=== PATIENT | male | born 1935 | race Hispanic/Latino ===

== ENCOUNTER 2020-03-01 15:45 | Inpatient (IN) | payer SELFPAY ==
[2020-03-01] MEDS ORDERED: ALBUTEROL 2.5 MG/3 ML NEB SOL ONE (17:38)
[2020-03-01] MEDS ORDERED: IPRATROPIUM BROM 0.5MG/2.5ML ONE (17:38)
[2020-03-01] MEDS ORDERED: METHYLPREDNISOLONE 125 MG INJ ONE (17:38)
[2020-03-01] MEDS ORDERED: Magnesium Sulfate 2gm IVPB 2 G/50 ML BAG IV ONE (17:43)
[2020-03-01 17:58] LABS: Absolute Lymphocytes (CBC) 2.5 K/uL (0.7-4.9); Basophils % 0.3 % (0-1.3); Hematocrit 45.6 % (39.6-49.0); Lymphocytes % 15.5 % (15.3-44.8); MPV 8.4 fL (7.6-11.3); RBC Red Blood Cell Count 5.29 M/uL (4.33-5.43)
--- NOTE | 2020-03-01 18:10 | RAD REPORT ---
EXAM DESCRIPTION: RAD - Chest Single View - 03/01/2020 6:01 pm CLINICAL HISTORY: DYSPNEA COMPARISON: None TECHNIQUE: AP portable chest image was obtained 03/01/2020 6:01 pm . FINDINGS: No focal mass or consolidation. No failure or volume overload. Interstitial markings are p rominent with baseline unknown. This is probably chronic fibrosis. A superimposed interstitial infilt rate on fibrosis is possible. Heart and vasculature are normal. No measurable pleural effusion and no pneumothorax. No acute bony abnormality seen. No acute aortic findings suspected. IMPRESSION: No consolidation, focal mass or failure findings. Prominent interstitial pattern that could be chronic interstitial lung disease, interstitial pneumoni a or a combination.
[2020-03-01 18:14] LABS: Protime INR 1.14
[2020-03-01 18:17] LABS: ALT/SGPT 17 U/L (12-78); AST/SGOT 19 U/L (15-37); Albumin 3.6 g/dL (3.4-5.0); Alkaline Phosphatase 115 U/L (45-117); BUN Blood Urea Nitrogen 16 mg/dL (7-18); Bicarbonate 23 mmol/L (21-32); Bilirubin Direct 0.2 mg/dL (0-0.2); Bilirubin Total 1.1 mg/dL (0.2-1.0); Glucose Level 125 mg/dL (74-106); Lipase 75 U/L (73-393); NT PRO-BNP 87 pg/mL (<450); Potassium 4.2 mmol/L (3.5-5.1); Protein, Total 9.3 g/dL (6.4-8.2); Sodium Level 135 mmol/L (136-145); Troponin (Emerg Dept Use Only) < 0.02 ng/mL (0.0-0.045)
[2020-03-01] MEDS ORDERED: CEFTRIAXONE/SWI 1gm 1 GM/10 ML SYR ONE (18:53)
[2020-03-01] MEDS ORDERED: NA CHLORIDE 0.9% 1,000 ML ONE (18:53)
[2020-03-01] MEDS ORDERED: AZITHROMYCIN IV 500 MG in NA CHLORIDE 0.9% 250 ML IVPB ONE (19:00)
--- NOTE | 2020-03-01 20:14 | EDPHYS ---
Physician Documentation [facility] Name: Rich Barraza Age: 84 yrs Sex: Male : 1935 Arrival Date: 03/01/2020 Time: 15:54 Bed 6 Private MD: ED Physician Elías Mason HPI: 03/01 19:17 This 84 yrs old Male presents to ER via Ambulatory with complaints of jr8 Shortness of breath. 20:10 The patient has shortness of breath at rest. Onset: The symptoms/episode began/occurred jr8 acutely, today. Duration: The symptoms are continuous. The patient's shortness of breath is aggravated by light activity, talking, walking. Associated signs and symptoms: Pertinent positives: abdominal pain. Severity of symptoms: At their worst the symptoms were moderate in the emergency department the symptoms are unchanged. The patient has not experienced similar symptoms in the past. The patient has not recently seen a physician. Historical: - Allergies: 15:58 No Known Allergies; sv - PMHx: 15:58 None; sv - PSHx: 15:58 None; sv - Immunization history:: Adult Immunizations. - Social history:: Smoking status: Patient denies any tobacco usage or history of. ROS: 20:10 Eyes: Negative for injury, pain, redness, and discharge, ENT: Negative for injury, jr8 pain, and discharge, Neck: Negative for injury, pain, and swelling, Cardiovascular: Negative for chest pain, palpitations, and edema, Back: Negative for injury and pain, MS/Extremity: Negative for injury and deformity, Skin: Negative for injury, rash, and discoloration, Neuro: Negative for headache, weakness, numbness, tingling, and seizure. 20:10 Respiratory: Positive for dyspnea on exertion, shortness of breath, wheezing. 20:10 Abdomen/GI: Positive for abdominal pain, Negative for nausea, vomiting, and diarrhea, constipation, abdominal cramps, abdominal distension. Exam: 20:10 Eyes: Pupils equal round and reactive to light, extra-ocular motions intact. Lids and jr8 lashes normal. Conjunctiva and sclera are non-icteric and not injected. Cornea within normal limits. Periorbital areas with no swelling, redness, or edema. ENT: Nares patent. No nasal discharge, no septal abnormalities noted. Tympanic membranes are normal and external auditory canals are clear. Oropharynx with no redness, swelling, or masses, exudates, or evidence of obstruction, uvula midline. Mucous membranes moist. Neck: Trachea midline, no thyromegaly or masses palpated, and no cervical lymphadenopathy. Supple, full range of motion without nuchal rigidity, or vertebral point tenderness. No Meningismus. Cardiovascular: Regular rate and rhythm with a normal S1 and S2. No gallops, murmurs, or rubs. Normal PMI, no JVD. No pulse deficits. Back: No spinal tenderness. No costovertebral tenderness. Full range of motion. Skin: Warm, dry with normal turgor. Normal color with no rashes, no lesions, and no evidence of cellulitis. MS/ Extremity: Pulses equal, no cyanosis. Neurovascular intact. Full, normal range of motion. Neuro: Awake and alert, GCS 15, oriented to person, place, time, and situation. Cranial nerves II-XII grossly intact. Motor strength 5/5 in all extremities. Sensory grossly intact. Cerebellar exam normal. Normal gait. 20:10 Respiratory: moderate respiratory distress is noted, Respirations: labored breathing, tachypnea, Breath sounds: wheezing: expiratory that is moderate, is heard diffusely. 20:10 Abdomen/GI: Inspection: abdomen appears normal, Bowel sounds: active, all quadrants, Palpation: soft, in all quadrants, mild abdominal tenderness, in the right upper quadrant and right lower quadrant, mass, is not appreciated, rebound tenderness, is not appreciated, voluntary guarding, is not appreciated, involuntary guarding, is not appreciated, no appreciated organomegaly, Indicators: McBurney's point is not tender, Saleh's sign is negative, Rovsing's sign is negative, Liver: tenderness, is not appreciated. Vital Signs: 15:58 BP 129 / 68; Pulse 94; Resp 16; Temp 98.4(O); Pulse Ox 97% ; Weight 63.5 kg; sv 18:00 BP 102 / 69; Pulse 126; Resp 28; Pulse Ox 97% on R/A; em 19:00 BP 110 / 75; Pulse 105; Resp 24; Temp 98.4; Pulse Ox 99% on R/A; rr5 20:00 BP 115 / 86; Pulse 99; Resp 27; Pulse Ox 98% on R/A; rr5 21:00 BP 124 / 94; Pulse 95; Resp 25; Temp 98.5; Pulse Ox 99% on R/A; rr5 22:00 BP 120 / 48; Pulse 86; Resp 24; Temp 98.8; Pulse Ox 97% on R/A; rr5 22:59 BP 137 / 71; Pulse 90; Resp 26; Pulse Ox 97% on R/A; rr5 23:30 BP 131 / 70; Pulse 85; Resp 23; Temp 97; Pulse Ox 99% on R/A; rr5 MDM: 17:34 Patient medically screened. jr8 20:10 Data reviewed: vital signs, nurses notes, lab test result(s), EKG, radiologic studies, jr8 CT scan, plain films. Data interpreted: Pulse oximetry: on room air is 97 %. Interpretation: normal. Counseling: I had a detailed discussion with the patient and/or guardian regarding: the historical points, exam findings, and any diagnostic results supporting the discharge/admit diagnosis, lab results, radiology results, the need for further work-up and treatment in the hospital. Physician consultation: Saman Rod MD was called at 20:12, regarding admission, to the telemetry unit. and will see patient. 21:22 ED course: Dr. Dee notified of acute appendicitis and will see patient . 03/01 17:35 Order name: Basic Metabolic Panel; Complete Time: 18:40 03/01 17:35 Order name: CBC with Diff; Complete Time: 18:40 03/01 17:35 Order name: LFT's; Complete Time: 18:40 03/01 17:35 Order name: Magnesium; Complete Time: 18:40 03/01 17:35 Order name: NT PRO-BNP; Complete Time: 18:40 03/01 17:35 Order name: PT-INR; Complete Time: 18:40 03/01 17:35 Order name: Troponin (emerg Dept Use Only); Complete Time: 18:40 03/01 17:35 Order name: Lipase; Complete Time: 18:40 03/01 17:35 Order name: Blood Culture Adult (2) 03/01 17:35 Order name: Procalcitonin; Complete Time: 18:40 03/01 17:35 Order name: Lactate; Complete Time: 18:40 8 03/01 19:39 Order name: Flu rr5 03/01 19:39 Order name: Influenza Screen (A ; Complete Time: 20:26 EDMS 03/01 21:32 Order name: Lactate Sepsis 2 HR Follow-up; Complete Time: 21:34 EDMS 03/01 21:56 Order name: CBC with Automated Diff EDMS 03/01 21:56 Order name: CBC with Automated Diff EDMS 03/01 21:56 Order name: Comprehensive Metabolic Panel EDMS 03/01 21:56 Order name: Comprehensive Metabolic Panel EDMS 03/01 21:56 Order name: Lipase EDMS 03/01 21:56 Order name: Lipase EDMS 03/01 21:56 Order name: Magnesium EDMS 03/01 21:56 Order name: Magnesium EDMS 03/01 21:56 Order name: Phosphorus EDMS 03/01 21:56 Order name: Phosphorus EDMS 03/01 21:56 Order name: Protime (+INR) EDMS 03/01 21:56 Order name: Protime (+INR) EDMS 03/01 21:56 Order name: PTT, Activated Partial Thromb EDMS 03/01 21:56 Order name: PTT, Activated Partial Thromb EDMS 03/01 17:35 Order name: XRAY Chest (1 view); Complete Time: 18:40 [facility] 03/01 17:35 Order name: EKG; Complete Time: 17:36 8 03/01 17:35 Order name: Cardiac monitoring; Complete Time: 17:38 [facility] 03/01 17:35 Order name: EKG - Nurse/Tech; Complete Time: 17:38 8 03/01 17:35 Order name: IV Saline Lock; Complete Time: 17:38 8 03/01 17:35 Order name: Labs collected and sent; Complete Time: 17:38 8 03/01 17:35 Order name: O2 Per Protocol; Complete Time: 17:38 [facility] 03/01 17:35 Order name: O2 Sat Monitoring; Complete Time: 17:38 [facility] 03/01 20:09 Order name: CT Abd/Pelvis - IV Contrast Only; Complete Time: 21:34 [facility] 03/01 21:55 Order name: NPO EDMS 03/01 21:56 Order name: CONS Physician Consult EDMS 03/01 21:56 Order name: NPO [facility] Administered Medications: 17:34 Drug: Albuterol - atroVENT (3:1) (2.5 mg - 0.5 mg) 3 ml Route: Nebulizer; em 18:00 Follow up: Response: No adverse reaction; Marked relief of symptoms; Wheezing diminishedem 17:34 Drug: SOLU-Medrol 125 mg Route: IVP; Site: left antecubital; em 18:00 Follow up: Response: No adverse reaction; Marked relief of symptoms; Wheezing diminishedem 17:38 Drug: Magnesium Sulfate 2 grams Route: IVPB; Infused Over: 2 hrs; Site: left em antecubital; 19:06 Follow up: Response: No adverse reaction; Marked relief of symptoms; IV Status: em Completed infusion; IV Intake: 100ml 18:51 Drug: NS 0.9% 1000 ml Route: IV; Rate: 1000 ml; Site: left antecubital; em 20:45 Follow up: Response: No adverse reaction; IV Status: Completed infusion; IV Intake: rr5 1000ml 18:51 Drug: Rocephin 1 grams Route: IV; Rate: calculated rate; Site: left antecubital; em 19:30 Follow up: Response: No adverse reaction; IV Status: Completed infusion; IV Intake: [id number] 19:05 Drug: Zithromax 500 mg Route: IVPB; Infused Over: 1 hrs; Site: left antecubital; em 20:20 Follow up: Response: No adverse reaction; IV Status: Completed infusion; IV Intake: rr5 250ml 21:40 Dru.375 grams of (Zosyn 3.375 grams, NS 0.9% 100 ml) Route: IVPB; Infused Over: 60 rr5 mins; Site: left antecubital; 22:16 Follow up: Response: No adverse reaction; IV Status: Completed infusion; IV Intake: rr5 100ml 21:40 Drug: NS 0.9% 1000 ml Route: IV; Rate: 1000 ml; Site: left antecubital; rr5 22:22 Follow up: Response: No adverse reaction; IV Status: Infusion continued upon admission; rr5 IV Intake: 600ml 22:10 Drug: NS 0.9% 1000 ml Route: IV; Rate: 100 ml/hr; Site: left antecubital; rr5 22:22 Follow up: Response: No adverse reaction; IV Status: Infusion continued upon admission rr5 Disposition: 03/02 19:42 Co-signature as Attending Physician, Elías Mason MD. 7 Disposition: 03/01/20 20:13 Hospitalization ordered by Saman Rod for Inpatient Admission. Preliminary diagnosis are Chronic obstructive pulmonary disease with (acute) exacerbation, Acute appendicitis. - Bed requested for Telemetry/MedSurg (Inpatient). - Status is Inpatient Admission. rr5 - Condition is Fair. - Problem is new. - Symptoms have improved. Signatures: Dispatcher [employer] EDFaith Love RN La Nena Broussard RN TYRA Roger Richardson RN Carlos Marquez PA PA jr8 Patrick Salazar RN RN rr5 Elías Mason MD MD 7 Corrections: (The following items were deleted from the chart) 03/01 21:09 20:13 Hospitalization Ordered by Saman Rod MD for Inpatient Admission. Preliminary jr8 diagnosis is Pneumonia due to other specified bacteria; Chronic obstructive pulmonary disease with (acute) exacerbation. Bed requested for Telemetry/MedSurg (Inpatient). Status is Inpatient Admission. Condition is Fair. Problem is new. Symptoms have improved. jr8 21:57 21:09 03/01/2020 20:13 Hospitalization Ordered by Saman Rod MD for Inpatient mw Admission. Preliminary diagnosis is Chronic obstructive pulmonary disease with (acute) exacerbation; Acute appendicitis. Bed requested for Telemetry/MedSurg (Inpatient). Status is Inpatient Admission. Condition is Fair. Problem is new. Symptoms have improved. jr8 23:47 21:57 03/01/2020 20:13 Hospitalization Ordered by Saman Rod MD for Inpatient rr5 Admission. Preliminary diagnosis is Chronic obstructive pulmonary disease with (acute) exacerbation; Acute appendicitis. Bed requested for Telemetry/MedSurg (Inpatient). Status is Inpatient Admission. Condition is Fair. Problem is new. Symptoms have improved. mw
--- NOTE | 2020-03-01 20:14 | ER ---
Nurse's Notes [facility] Name: Rich Barraza Age: 84 yrs Sex: Male : 1935 Arrival Date: 03/01/2020 Time: 15:54 Bed 6 Private MD: Diagnosis: Chronic obstructive pulmonary disease with (acute) exacerbation;Acute appendicitis Presentation: 03/01 15:55 Chief complaint: Patient states: sent by health clinic for epigastric pain started sv yesterday. Denies n/v. Stated URI and abnormal EKG. Risk Assessment: Do you want to hurt yourself or someone else? Patient reports no desire to harm self or others. 15:55 Method Of Arrival: Ambulatory sv 15:58 Coronavirus screen: Surgical mask placed on patient. Patient moved to private room, sv placed in contact and droplet isolation with eye protection until further assessment. Patient reports a cough. Patient denies shortness of breath or difficulty breathing. Patient reports a measured and/or subjective temperature greater than 100.4F. Patient denies travel on a cruise ship or to a country the [facility] [place]NOTE 2[place] currently lists as an affected area. Patient denies contact with known and/or suspected case of COVID-19. Ebola Screen: No symptoms or risks identified at this time. Onset of symptoms was February 29, 2020. 15:58 Acuity: KOFI 3 sv 17:29 Acuity: KOFI 2 aa5 17:29 Note Pt's son reported SOB, respiratory distress noted, pt taken to room ER6. aa5 17:30 Initial Sepsis Screen: Does the patient meet any 2 criteria? RR > 20 per min. HR > 90 em bpm. Yes Does the patient have a suspected source of infection? No. Patient's initial sepsis screen is negative. If YES to both, name of provider notified: Carlos MENDENHALL. Historical: - Allergies: 15:58 No Known Allergies; sv - PMHx: 15:58 None; sv - PSHx: 15:58 None; sv - Immunization history:: Adult Immunizations. - Social history:: Smoking status: Patient denies any tobacco usage or history of. Screenin:30 Abuse screen: Denies threats or abuse. Nutritional screening: No deficits noted. em Tuberculosis screening: No symptoms or risk factors identified. Fall Risk None identified. Assessment: 17:30 General: Appears ill, Behavior is restless, Denies fever. Pain: Complains of pain in em abdomen. Neuro: Level of Consciousness is awake, alert, obeys commands, Oriented to person, place, time, situation, Appropriate for age. Cardiovascular: Denies chest pain, Capillary refill < 3 seconds Patient's skin is warm and dry. Rhythm is sinus tachycardia. Respiratory: Reports shortness of breath Airway is patent Respiratory effort is labored, Respiratory pattern is regular, tachypnea Breath sounds with wheezes bilaterally. the patient has severe shortness of breath. GI: Abdomen is round non-distended, Bowel sounds present X 4 quads. Reports upper abdominal pain. Derm: Skin is intact, is thin, Skin is clammy, Skin is pale, Skin temperature is cool. Musculoskeletal: Capillary refill < 3 seconds, Range of motion: intact in all extremities. 18:00 Reassessment: Patient appears in no apparent distress at this time. Patient states em feeling better. Patient states symptoms have improved. 18:35 Reassessment: Patient appears in no apparent distress at this time. Patient and/or em family updated on plan of care and expected duration. Pain level reassessed. Patient is alert, oriented x 3, equal unlabored respirations, skin warm/dry/pink. Patient states feeling better. 19:10 General: Appears in no apparent distress. comfortable, Behavior is calm, cooperative, rr5 appropriate for age. 19:10 Pain: Denies pain. Neuro: Level of Consciousness is awake, alert, obeys commands, rr5 Oriented to person, place, time, situation. Cardiovascular: Capillary refill < 3 seconds Patient's skin is warm and dry. Respiratory: Airway is patent Respiratory effort is even, unlabored, Respiratory pattern is regular, tachypnea Breath sounds with wheezes bilaterally. GI: No signs and/or symptoms were reported involving the gastrointestinal system. : No signs and/or symptoms were reported regarding the genitourinary system. EENT: No signs and/or symptoms were reported regarding the EENT system. Derm: Skin is intact, is healthy with good turgor, Skin is pink, warm \T\ dry. Musculoskeletal: Circulation, motion, and sensation intact. Capillary refill < 3 seconds. 20:30 Reassessment: Patient appears in no apparent distress at this time. No changes from rr5 previously documented assessment. Patient is alert, oriented x 3, equal unlabored respirations, skin warm/dry/pink. for admission awaiting for orders and room number. 21:30 Reassessment: lactate 5.8 [facility] laboratory staff called, ED provider aware. rr5 21:30 Reassessment: Patient appears in no apparent distress at this time. Patient is alert, rr5 oriented x 3, equal unlabored respirations, skin warm/dry/pink. family updated for the plan of care. 22:30 Reassessment: Patient appears in no apparent distress at this time. Patient is alert, rr5 oriented x 3, equal unlabored respirations, skin warm/dry/pink. for transfer to floor at 2330H. Vital Signs: 15:58 BP 129 / 68; Pulse 94; Resp 16; Temp 98.4(O); Pulse Ox 97% ; Weight 63.5 kg; sv 18:00 BP 102 / 69; Pulse 126; Resp 28; Pulse Ox 97% on R/A; em 19:00 BP 110 / 75; Pulse 105; Resp 24; Temp 98.4; Pulse Ox 99% on R/A; rr5 20:00 BP 115 / 86; Pulse 99; Resp 27; Pulse Ox 98% on R/A; rr5 21:00 BP 124 / 94; Pulse 95; Resp 25; Temp 98.5; Pulse Ox 99% on R/A; rr5 22:00 BP 120 / 48; Pulse 86; Resp 24; Temp 98.8; Pulse Ox 97% on R/A; rr5 22:59 BP 137 / 71; Pulse 90; Resp 26; Pulse Ox 97% on R/A; rr5 23:30 BP 131 / 70; Pulse 85; Resp 23; Temp 97; Pulse Ox 99% on R/A; rr5 ED Course: 15:54 Patient arrived in ED. mr 16:00 Triage completed. sv 16:00 Arm band placed on. sv 17:30 Patient has correct armband on for positive identification. Placed in gown. Bed in low em position. Call light in reach. Side rails up X2. Adult w/ patient. laboratory monitor on. Pulse ox on. NIBP on. 17:34 [facility] jr8 17:34 Elías Mason MD is Attending Physician. jr8 17:37 Roger Richardson, RN is Primary Nurse. em 17:40 Inserted saline lock: 20 gauge in left antecubital area, using aseptic technique. Blood em collected. 17:40 Initial lab(s) drawn, by ED staff, sent to lab. First set of blood cultures drawn by me.em 18:02 XRAY Chest (1 view) In Process Unspecified. EDMS 20:13 Saman Rod MD is Hospitalizing Provider. jr8 20:40 Repeat lab(s) drawn. by me, sent to lab. rr5 20:54 CT Abd/Pelvis - IV Contrast Only In Process Unspecified. EDMS 22:59 No provider procedures requiring assistance completed. Patient admitted, IV remains in rr5 place. intact, No redness/swelling at site. Administered Medications: 17:34 Drug: Albuterol - atroVENT (3:1) (2.5 mg - 0.5 mg) 3 ml Route: Nebulizer; em 18:00 Follow up: Response: No adverse reaction; Marked relief of symptoms; Wheezing diminishedem 17:34 Drug: SOLU-Medrol 125 mg Route: IVP; Site: left antecubital; em 18:00 Follow up: Response: No adverse reaction; Marked relief of symptoms; Wheezing diminishedem 17:38 Drug: Magnesium Sulfate 2 grams Route: IVPB; Infused Over: 2 hrs; Site: left em antecubital; 19:06 Follow up: Response: No adverse reaction; Marked relief of symptoms; IV Status: em Completed infusion; IV Intake: 100ml 18:51 Drug: NS 0.9% 1000 ml Route: IV; Rate: 1000 ml; Site: left antecubital; em 20:45 Follow up: Response: No adverse reaction; IV Status: Completed infusion; IV Intake: rr5 1000ml 18:51 Drug: Rocephin 1 grams Route: IV; Rate: calculated rate; Site: left antecubital; em 19:30 Follow up: Response: No adverse reaction; IV Status: Completed infusion; IV Intake: [id number] 19:05 Drug: Zithromax 500 mg Route: IVPB; Infused Over: 1 hrs; Site: left antecubital; em 20:20 Follow up: Response: No adverse reaction; IV Status: Completed infusion; IV Intake: rr5 250ml 21:40 Dru.375 grams of (Zosyn 3.375 grams, NS 0.9% 100 ml) Route: IVPB; Infused Over: 60 rr5 mins; Site: left antecubital; 22:16 Follow up: Response: No adverse reaction; IV Status: Completed infusion; IV Intake: rr5 100ml 21:40 Drug: NS 0.9% 1000 ml Route: IV; Rate: 1000 ml; Site: left antecubital; rr5 22:22 Follow up: Response: No adverse reaction; IV Status: Infusion continued upon admission; rr5 IV Intake: 600ml 22:10 Drug: NS 0.9% 1000 ml Route: IV; Rate: 100 ml/hr; Site: left antecubital; rr5 22:22 Follow up: Response: No adverse reaction; IV Status: Infusion continued upon admission rr5 Intake: 19:06 IV: 100ml; Total: 100ml. em 19:30 IV: 10ml; Total: 110ml. rr5 20:20 IV: 250ml; Total: 360ml. rr5 20:45 IV: 1000ml; Total: 1360ml. rr5 22:16 IV: 100ml; Total: 1460ml. rr5 22:22 IV: 600ml; Total: 2060ml. rr5 Outcome: 20:13 Decision to Hospitalize by Provider. 8 22:20 Admitted to Tele accompanied by tech, via stretcher, room 415, with chart, Report rr5 called to angelique 22:20 Condition: stable rr5 22:20 Instructed on the need for admit. 23:47 Patient left the ED. rr5 Signatures: Dispatcher [employer] Faith Vazquez, RN TYRA Tracy Noyola Edgar RN Yue Howard RN RN aa5 Carlos Graf PA PA jr8 Patrick Salazar RN RN rr5 Corrections: (The following items were deleted from the chart) 16:02 15:58 63.5 kg; sv sv 16:02 15:58 Resp 16bpm; Pulse Ox 100%; Temp 98.4F Oral; 63.5 kg; sv sv
--- NOTE | 2020-03-01 21:10 | RAD REPORT ---
EXAM DESCRIPTION: CT - Abdomen Pelvis W Contrast - 03/01/2020 8:54 pm CLINICAL HISTORY: ABD PAIN COMPARISON: No comparisons TECHNIQUE: Biphasic, helical CT imaging of the abdomen and pelvis was performed following 100 ml non -ionic IV contrast. No oral contrast administered. All CT scans are performed using dose optimization technique as appropriate and may include automated exposure control or mA/KV adjustment according to patient size. FINDINGS: No suspicious findings in the lung bases. The liver, spleen, and pancreas show no suspicious findings. Several small gallstones are present. No active gallbladder process seen. No biliary tree dilatation. Symmetric renal function is seen with no hydronephrosis or suspicious renal mass. No pyelonephritis o r acute parenchymal process. No bladder abnormalities. No adrenal abnormalities. No gastric dilatation or gastric wall thickening. No dilated small bowel. Terminal ileum is normal in appearance. The appendix is grossly abnormal. Appendix is dilated to 13 mm. A small appendicolith is present. There is stranding in the periappendiceal fat. Reactive lymph nodes are present in the bella cent fatty tissues. The appendix and cecum are positioned in the right mid abdomen with the appendix extending medially. There is stranding along the right pararenal fascia. There is a mild secondary in volvement of the third portion duodenum. No free air or pneumatosis. No abscess or extravasation of b owel content identifiable. No hernia, mass or bulky lymphadenopathy. Prominent lumbar spine disc and bone degenerative change present. No pathologic bone process. 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 Findings telephoned to the referring clinician 9:06 p.m. IMPRESSION: Acute appendicitis. No abscess, free air or other complicating factor. The appendix is positioned in the right mid abdomen along the right renal fascia. This is superior to the typical right lower quadrant position. Cholelithiasis without acute gallbladder finding.
[2020-03-01] MEDS ORDERED: PIPER/TAZO/NS 3.375gm 3.375 GM/100 ML BAG ONE (21:33)
[2020-03-01] MEDS ORDERED: NA CHLORIDE 0.9% 2,000 ML ONE (21:39)
[2020-03-01] MEDS ORDERED: ONDANSETRON 4 MG/2 ML VIAL IV PRN (21:49)
[2020-03-01] MEDS ORDERED: HYDROMORPHONE HCL 1 MG/ML INJ IV PRN (21:49)
[2020-03-01] MEDS ORDERED: ACETAMINOPHEN 650MG/RECT SUPP RECT PRN (21:49)
[2020-03-02 00:37] VITALS: BMI 25.0
[2020-03-02] MEDS: Ringers Lactate 1,000 ML IV SCH ×3 (01:18→17:03)
[2020-03-02] MEDS: Levofloxacin500mg IV 500 MG/100 ML BAG IV SCH ×2 (01:18→20:40)
[2020-03-02] MEDS: METRONIDAZOLE 500mg IVPB 500 MG/100 ML BAG IV SCH ×4 (01:18→17:39)
[2020-03-02 07:29] LABS: Absolute Lymphocytes (CBC) 0.7 K/uL (0.7-4.9); Basophils % 0.2 % (0-1.3); Hematocrit 35.6 % (39.6-49.0); Lymphocytes % 4.2 % (15.3-44.8); MPV 8.3 fL (7.6-11.3)
[2020-03-02 07:43] LABS: Albumin 2.7 g/dL (3.4-5.0); Bilirubin Total 0.5 mg/dL (0.2-1.0); Magnesium 2.3 mg/dL (1.8-2.4); Phosphorus 1.3 mg/dL (2.5-4.9); Potassium 4.3 mmol/L (3.5-5.1); Protein, Total 7.1 g/dL (6.4-8.2)
--- NOTE | 2020-03-02 08:02 | P.HP ---
Certification for Inpatient Patient admitted to: Inpatient With expected LOS: >2 Midnights Patient will require the following post-hospital care: None Practitioner: I am a practitioner with admitting privileges, knowledge of patient current condition, hospital course, and medical plan of care. Services: Services provided to patient in accordance with Admission requirements found in Title 42 Section 412.3 of the Code of Federal Regulations Patient History Date of Service: 03/01/20 Reason for admission: Abdominal pain/acute appendicitis History of Present Illness: Patient is an 84-year-old gentleman who came to the hospital with fever and abdominal discomfort. Pain was in the lower abdominal quadrants. Patient has some rebound and guarding as well. Patient did have a leukocytosis and his lactic acid and procalcitonin were elevated. If workup in the emergency room revealed an acute appendicitis. Patient also has history of COPD. Otherwise, patient has been doing well with no new complaints. 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 Allergies No Known Allergies Allergy (Verified 03/01/20 23:59) Home Medications: NK [No Home Meds] 03/02/20 - Past Medical/Surgical History Has patient received pneumonia vaccine in the past: No Diabetic: No -: COPD? -: asthma -: urinary related surgery - Family History Brother Medical History: Heart disease, Hypertension, Diabetes - Social History Smoking Status: Former smoker Alcohol use: Yes CD- Drugs: No Caffeine use: Yes Place of Residence: Home Review of Systems 10-point ROS is otherwise unremarkable Physical Examination - Vital Signs Temperature: 97.3 F Blood Pressure: 121/55 Pulse: 75 Respirations: 18 Pulse Ox (%): 93 - Physical Exam General: Alert, In no apparent distress, Oriented x3 HEENT: Atraumatic, PERRLA, Mucous membr. moist/pink, EOMI, Sclerae nonicteric Neck: Supple, 2+ carotid pulse no bruit, No LAD, Without JVD or thyroid abnormality Respiratory: Clear to auscultation bilaterally, Normal air movement Cardiovascular: Regular rate/rhythm, Normal S1 S2, No murmurs Gastrointestinal: Normal bowel sounds, Soft and benign, Non-distended, No guarding, Tenderness, Rebound Musculoskeletal: No clubbing, No swelling, No tenderness Integumentary: No rashes Neurological: Normal gait, Normal speech, Normal strength at 5/5 x4 extr, Normal tone, Sensation intact, Cranial nerves 3-12 intact, Normal affect Lymphatics: No axilla or inguinal lymphadenopathy - Studies Laboratory Data (last 24 hrs) 03/01/20 17:40: PT 13.4 H, INR 1.14 03/01/20 17:40: WBC 16.0 H, Hgb 14.6, Hct 45.6, Plt Count 219 03/01/20 17:40: Sodium 135 L, Potassium 4.2, BUN 16, Creatinine 1.22, Glucose 125 H, Magnesium 2.0, Total Bilirubin 1.1 H, AST 19, ALT 17, Alkaline Phosphatase 115, Lipase 75 Microbiology Data (last 24 hrs): 03/01/20 19:40 Nasopharnyx Influenza Type A Antigen Screen - Final 03/01/20 19:40 Nasopharnyx Influenza Type B Antigen Screen - Final Assessment & Plan - Problems (Diagnosis) (1) Acute appendicitis Current Visit: Yes Status: Acute (2) History of COPD Current Visit: Yes Status: Acute - Plan 1. Continue with IV hydration 2. Continue with IV antibiotics 3. Continue with pain control 4. NPO 5. General surgery consultation; 6. Serial H&H, and we will monitor CBC, LFTs, lactic acid, and procalcitonin along with electrolytes. 7. Monitor respiratory status closely 8. Patient on low to moderate risk for having perioperative cardiopulmonary complications. However, benefits of surgery outweigh the risk and would proceed with surgery as an emergent surgical intervention 9. GI and DVT prophylaxis Discharge Plan: Home Plan to discharge in: Greater than 2 days - Advance Directives Does patient have a Living Will: No Does patient have a Durable POA for Healthcare: No - Code Status/Comfort Care Code Status Assessed: Yes Code Status: Full Code Critical Care: No Time Spent Managing PTS Care (In Minutes): 45
--- NOTE | 2020-03-02 08:05 | EKG ---
Test Date: 2020-03-01 Test Time: 19:50:58 Hazardous Substances Scientist: RR MEASUREMENT RESULTS: Intervals: Rate: 107 SD: 168 QRSD: 90 QT: 350 QTc: 467 [place]: P: 80 SD: 168 QRS: 96 T: 75 INTERPRETIVE STATEMENTS: Sinus tachycardia with frequent and consecutive premature ventricular complexes and fusion complexes Rightward axis Abnormal ECG No previous ECG available for comparison Electronically Signed On 03-02-20 08:04:01 CDT by Joe Gallagher
--- NOTE | 2020-03-02 08:05 | P.PN ---
Subjective Date of Service: 03/02/20 Still with pain. Scheduled to see General surgery this morning & go to the OR. Review of Systems 10-point ROS is otherwise unremarkable Physical Examination - Vital Signs Temperature: 97.3 F Blood Pressure: 121/55 Pulse: 75 Respirations: 18 Pulse Ox (%): 93 - Physical Exam General: Alert, In no apparent distress, Oriented x3 Respiratory: Clear to auscultation bilaterally, Normal air movement Cardiovascular: Regular rate/rhythm, Normal S1 S2, No murmurs Gastrointestinal: Normal bowel sounds, Soft and benign, Non-distended, No guarding, Tenderness, Rebound Musculoskeletal: No clubbing, No swelling, No tenderness Integumentary: No rashes Neurological: Normal speech, Normal tone, Sensation intact, Cranial nerves 3-12 intact - Studies Laboratory Data (last 24 hrs) 03/01/20 17:40: PT 13.4 H, INR 1.14 03/01/20 17:40: WBC 16.0 H, Hgb 14.6, Hct 45.6, Plt Count 219 03/01/20 17:40: Sodium 135 L, Potassium 4.2, BUN 16, Creatinine 1.22, Glucose 125 H, Magnesium 2.0, Total Bilirubin 1.1 H, AST 19, ALT 17, Alkaline Phosphatase 115, Lipase 75 Microbiology Data (last 24 hrs): 03/01/20 19:40 Nasopharnyx Influenza Type A Antigen Screen - Final 03/01/20 19:40 Nasopharnyx Influenza Type B Antigen Screen - Final Medications List Reviewed: Yes Assessment & Plan - Problems (Diagnosis) (1) Acute appendicitis Current Visit: Yes Status: Acute (2) History of COPD Current Visit: Yes Status: Acute - Plan Continue with current plan of care as mentioned below 1. Continue with IV hydration 2. Continue with IV antibiotics 3. Continue with pain control 4. NPO 5. General surgery consultation; 6. Serial H&H, and we will monitor CBC, LFTs, lactic acid, and procalcitonin along with electrolytes. 7. Monitor respiratory status closely 8. Patient on low to moderate risk for having perioperative cardiopulmonary complications. However, benefits of surgery outweigh the risk and would proceed with surgery as an emergent surgical intervention 9. GI and DVT prophylaxis Discharge Plan: Home Plan to discharge in: Greater than 2 days - Advance Directives Does patient have a Living Will: No Does patient have a Durable POA for Healthcare: No - Code Status/Comfort Care Code Status: Full Code Critical Care: No Time Spent Managing PTS Care (In Minutes): 30
[2020-03-02 08:10] LABS: Protime INR 1.2
[2020-03-02] MEDS ORDERED: BUPIVACA 0.25%/EPI 0.0005% MDV 50 ML VIAL ONE (08:27)
[2020-03-02] MEDS ORDERED: LIDOCAINE 2% MPF 5 ML VIAL ONE (08:43)
[2020-03-02] MEDS ORDERED: propofoL 200 MG/20 ML VIAL IV ONE (08:43)
[2020-03-02] MEDS ORDERED: ROCURONIUM 50 MG/5 ML VIAL IV ONE (08:46)
[2020-03-02] MEDS ORDERED: FENTANYL CITR 100 MCG/2 ML ONE (08:46)
[2020-03-02] MEDS ORDERED: ENOXAPARIN 30 MG/0.3 ML SQ SCH (09:00)
--- NOTE | 2020-03-02 09:04 | CON ---
Date of Consultation: 03/02/2020 Brief History Of Present Illness: Patient is an 84-year-old gentleman who came to the [facility] with fever, abdominal pain beginning yesterday. He states that the pain got significantly worse and he had some nausea, no vomiting, significantly worse pain and he developed sweats at that point. He came to the emergency room with the above-stated complaint. He was worked up and found to have e vidence of appendicitis. Past Medical History: COPD, asthma. Past Surgical History: He has had a some urinary related surgery. He is a very poor historian and as such I am unable to get much information about his past medical hi story. Allergies: NO KNOWN DRUG ALLERGIES. Medications: None. Social History: He has a 50+ pack-year history of smoking. Drinks alcohol routinely. Denies recrea tional drug use. Review of Systems: Ten-point review of systems other than HPI, denies. Physical Examination: Vital signs: At time of my examination, his BMI was 25. His blood pressure 120/55, pulse of 75, res piratory rate 18, temperature 97.3. General: He is awake, alert, oriented. Psychiatric: He is conversive. HEENT: Normocephalic, sclerae anicteric. Mucous membranes are moist. Oropharynx clear. Neck: Supple. No JVD. Chest: Normal to expansion and excursion. Cardiovascular: Regular rate and rhythm. Pulmonary: Clear to auscultation bilaterally. Abdomen: Soft with positive McBurney's point tenderness. Positive voluntary guarding. Positive oziel ound. Focal peritonitis is most evident in the right lower quadrant and right mid upper quadrant. Extremities: No clubbing, cyanosis, edema. Skin: Warm and dry. Laboratory Data: Reveals a white blood count of 16.0, hemoglobin is 14.6, hematocrit of 45.6, platel et count is 219. His sodium is 135, potassium 4.2, chloride 101, carbon dioxide 23, BUN 16, creatini ne 1.2, glucose is 125. His total bilirubin 1.1, direct bilirubin 0.2, AST 19, ALT 17, alkaline phos phatase 117. Troponin less than 0.02. His lipase is 75. Procalcitonin 0.08. He had a CT scan of t he abdomen and pelvis officially read as acute appendicitis. No abscess, free air, or other complica ting factors. The appendix is positioned in the right mid abdomen along the right renal fascia. Thi s appeared to the typical right lower quadrant position. Cholelithiasis without acute gallbladder fi nding. He had a chest x-ray performed as well, officially read as no consolidation, focal mass or fa ilure. Findings prominent interstitial pattern could be chronic interstitial lung disease, interstit ial pneumonia or combination. Assessment/plan: 84-year-old male who comes in with signs and symptoms of acute nonperforated append icitis. 1.IV fluid hydration. 2.Antibiotic coverage. 3.I explained risks, benefits, and alternatives of laparoscopic, possible open appendectomy includin g but not limited to bleeding, infection, damage to surrounding tissue, need for further operative pr ocedures. The patient agrees to proceed as indicated. MADAN/JONATHAN Voice ID: [id number] Report ID: [id number]
[2020-03-02] MEDS ORDERED: KETOROLAC 30 MG/ML INJ ONE (09:27)
[2020-03-02] MEDS ORDERED: ONDANSETRON 4 MG/2 ML VIAL ONE (09:27)
[2020-03-02 09:36] LABS: Blood Morphology Comment NOT SEEN (NOT SEEN); Platelet Estimate ADEQ; Urine White Blood Cell Casts OK
[2020-03-02] MEDS ORDERED: dexAMETHasone 4 MG/ML VIAL ONE (09:37)
[2020-03-02] MEDS ORDERED: GLYCOPYRROLATE 0.2 MG/ML SYR ONE (09:38)
[2020-03-02] MEDS ORDERED: NEOSTIGMINE 1 MG/ML -5 ML ONE (09:38)
--- NOTE | 2020-03-02 09:48 | P.OP ---
Preoperative diagnosis: Acute Appendicitis Postoperative diagnosis: Acute Appendicitis Primary procedure: Laparoscopic Appendectomhy Anesthesia: GETA + Local Estimated blood loss: <10cc Specimen: Appendix Findings: Suppurative changes, no gross perforation or spillage Complications: None Drain(s): DENAE drain (round) Transferred to: Recovery Room Condition: Good
--- NOTE | 2020-03-02 10:43 | OP ---
Date of Procedure: 03/02/2020 Surgeon: Antwon Dee MD, Preoperative Diagnosis: Acute appendicitis. Postoperative Diagnosis: Acute appendicitis. Procedure Performed: Laparoscopic appendectomy. Anesthesia: General endotracheal plus local with local with 0.5% Marcaine with epinephrine. Estimated Blood Loss: Less than 10 mL. Specimen: Vermiform appendix. Findings: Suppurative changes, no gross perforation or spillage. Complications: None. Drains: 7-Malagasy round DENAE drain in the right hepatic fossa, transferred to recovery room in good con dition. Procedure In Detail: After informed was obtained, patient was brought to the operating room, prepped and draped in the usual sterile fashion. After adequate anesthesia was achieved, an infraumbilical area was anesthetized with 0.25% Marcaine, sharply incised and a 5 mm trocar was introduced in the ab domen without complication. Insufflation was obtained at 15 mmHg at this time. There was no injury to vital structures upon entry to the abdomen. Additional trocar chosen in the right lower quadrant. This was similarly anesthetized, sharply incised and a 5 mm trocar was introduced in the abdomen wi thout evidence of complication under direct visualization. Another trocar was then placed in the sup rapubic position. There was a 5 mm trocar, also placed under direct visualization without complicati on under direct visualization. The umbilical trocar was then up-sized to a 12 mm under direct visual ization without evidence of complication. The patient was positioned in the head down, right side up position and the ratcheted graspers used to smooth the small bowel out of the way. The appendix fou nd to be in the retrocecal position against the Gerota's fascia. It was dissected using blunt and Li gaSure dissection. The mesoappendix was taken down with the LigaSure device down to the confluence o f the cecum. There was some purulent changes, but no obvious gross spillage in the area, but the flu id was murky consistent with a developing abscess in the right lower quadrant. I then grasped and el evated the appendix and fired the Endo GERALD 35 blue load across the base of the appendix at the conflu ence of the cecum with good approximation of the tissues. The appendix was then placed in EndoCatch bag, removed the umbilical trocar and sent off for pathologic examination. The area was copiously ir rigated multiple times and completely clear and the pelvis was inspected and found to have some murky fluid as well, but no gross feculent peritonitis. The pelvis was completely irrigated and suctioned out until completely dry as was the right lower quadrant all the way up to the infrahepatic space. After this was completely irrigated and suctioned out completely dry, a 7-Malagasy round DENAE drain was b rought into the right lower quadrant trocar and positioned in the appropriate right colic gutter near the staple line and brought out and secured to the skin through the lateral trocar. At this point, the umbilical trocar was removed and the umbilical trocar site was closed using a Jaime-Mk sut ure passer with 0-Vicryl for fascia with good approximation tissues. The abdomen was completely desu fflated under direct visualization without evidence of complication. All skin incisions copiously ir rigated and closed with interrupted slade. A sterile dressing placed over top. The patient tolera antwon the procedure well without evidence of complication and transferred to PACU in good condition. A ll counts were correct at the end of case. MADAN/JONATHAN Voice ID: [id number] Report ID: [id number]
--- NOTE | 2020-03-02 11:55 | RAD REPORT ---
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 No focal infiltrate detected. N o subdiaphragmatic free air. No bowel obstruction is present. Moderate lumbar degenerative changes. Contrast is present in the uri nary bladder. IMPRESSION: No acute finding demonstrated
[2020-03-02] MEDS: POTASS/SODIUM PHOSPHATE 1 PKT POWD.PACK PO SCH ×3 (15:59→17:40)
[2020-03-02] MEDS ORDERED: VANCOMYCIN 1 GM in NA CHLORIDE 0.9% 250 ML IVPB ONE (23:33)
[2020-03-03] MEDS: METRONIDAZOLE 500mg IVPB 500 MG/100 ML BAG IV SCH ×2 (00:09→05:06)
[2020-03-03] MEDS ORDERED: NA CHLORIDE 0.9% 250 ML ONE (00:41)
[2020-03-03] MEDS ORDERED: VANCOMYCIN 1 GM/VIAL ONE (00:46)
[2020-03-03] MEDS: Ringers Lactate 1,000 ML IV SCH ×2 (05:13→17:41)
[2020-03-03 06:44] LABS: Absolute Lymphocytes (CBC) 1.4 K/uL (0.7-4.9); Hematocrit 35.9 % (39.6-49.0); Lymphocytes % 7.5 % (15.3-44.8); MPV 8.3 fL (7.6-11.3); RBC Red Blood Cell Count 4.22 M/uL (4.33-5.43)
[2020-03-03 07:11] LABS: Albumin 2.5 g/dL (3.4-5.0); Bilirubin Total 0.5 mg/dL (0.2-1.0); Magnesium 2.2 mg/dL (1.8-2.4); Phosphorus 2.3 mg/dL (2.5-4.9); Potassium 4.2 mmol/L (3.5-5.1)
[2020-03-03] MEDS: POTASS/SODIUM PHOSPHATE 1 PKT POWD.PACK PO SCH ×3 (08:41→11:35)
[2020-03-03] MEDS: ENOXAPARIN 40 MG/0.4 ML SQ SCH (08:41)
--- NOTE | 2020-03-03 11:09 | P.PN ---
Subjective Date of Service: 03/03/20 Chief Complaint: Abdominal pain/acute appendicitis Subjective: Improving (Patient feels well, no nausea, tolerating diet, less pain) Physical Examination - Vital Signs Temperature: 97.1 F Blood Pressure: 138/65 Pulse: 82 Respirations: 18 Pulse Ox (%): 93 - Physical Exam General: Alert, In no apparent distress, Cooperative Respiratory: Clear to auscultation bilaterally Gastrointestinal: Other (soft, mild appropriate TTP, ND, DENAE serous, incisions clean) - Studies Microbiology Data (last 24 hrs): 03/01/20 18:00 Blood - Blood Blood Culture Gram Stain - Final Medications List Reviewed: Yes Assessment And Plan - Current Problems (Diagnosis) (1) Acute appendicitis Current Visit: Yes Status: Acute Plan: - transition to PO pain meds - ambulate with assist - incentive spirometry - serial exams - DENAE drain teaching - daily dressing changes - advance diet - will kiki go home on PO antibiotics
[2020-03-03] MEDS ORDERED: HYDROCODONE/APAP 5/325 MG TAB PO PRN (11:10)
[2020-03-03] MEDS: PIPER/TAZO/NS 3.375gm 3.375 GM/100 ML BAG IVPB SCH ×2 (12:18→17:43)
--- NOTE | 2020-03-03 15:32 | P.PN ---
Subjective Date of Service: 03/03/20 Primary Care Provider: None Chief Complaint: Abdominal pain/acute appendicitis Subjective: Improving, Doing well Physical Examination - Vital Signs Temperature: 98.1 F Blood Pressure: 151/77 Pulse: 68 Respirations: 18 Pulse Ox (%): 96 - Physical Exam General: Alert, In no apparent distress, Cooperative HEENT: Atraumatic Neck: Supple Respiratory: Clear to auscultation bilaterally, Normal air movement Cardiovascular: Normal pulses, Regular rate/rhythm Gastrointestinal: Tenderness (Appropriate postop tenderness.) Neurological: Normal speech, Normal strength at 5/5 x4 extr, Normal tone, Normal affect - Studies Microbiology Data (last 24 hrs): 03/01/20 18:00 Blood - Blood Blood Culture Gram Stain - Final Medications List Reviewed: Yes Assessment & Plan Discharge Plan: Home Plan to discharge in: 24 Hours Physician Review Additional Text: Impression: Abdominal pain secondary to acute appendicitis status post laparoscopic appendectomy Plan: Patient has done well post operatively. Case discussed with surgery. Continued to advance diet. Encourage ambulation. Will provide DVT prophylaxis. Encourage incentive spirometer. Continue IV antibiotic therapy at this time. Will monitor closely. Anticipate discharge as early as tomorrow. Time Spent Managing Pts Care (In Minutes): 55
[2020-03-03 17:02] VITALS: O2SAT 95
[2020-03-04] MEDS: PIPER/TAZO/NS 3.375gm 3.375 GM/100 ML BAG IVPB SCH ×2 (05:40)
[2020-03-04] MEDS: Ringers Lactate 1,000 ML IV SCH ×2 (05:40)
[2020-03-04 06:28] LABS: BUN Blood Urea Nitrogen 9 mg/dL (7-18); Bicarbonate 26 mmol/L (21-32); Glucose Level 98 mg/dL (74-106); Magnesium 2.1 mg/dL (1.8-2.4); Phosphorus 1.7 mg/dL (2.5-4.9); Potassium 3.8 mmol/L (3.5-5.1); Sodium Level 142 mmol/L (136-145)
[2020-03-04 06:44] LABS: Absolute Lymphocytes (CBC) 2.5 K/uL (0.7-4.9); Basophils % 0.1 % (0-1.3); Hematocrit 35.5 % (39.6-49.0); Lymphocytes % 19.2 % (15.3-44.8); MPV 8.5 fL (7.6-11.3); RBC Red Blood Cell Count 4.11 M/uL (4.33-5.43)
[2020-03-04] MEDS: POTASS/SODIUM PHOSPHATE 1 PKT POWD.PACK PO SCH ×3 (07:00→08:40)
[2020-03-04] MEDS: ENOXAPARIN 40 MG/0.4 ML SQ SCH (07:17)
--- NOTE | 2020-03-04 10:51 | P.DS ---
Admission Date: 03/01/20 Discharge Date: 03/04/20 Primary Care Provider: None Disposition: ROUTINE DISCHARGE Discharge Condition: GOOD Reason for Admission: Abdominal pain/acute appendicitis Consultations: Surgery-Dr. Dee Procedures: Ct Scan: FINDINGS: No suspicious findings in the lung bases. The liver, spleen, and pancreas show no suspicious findings. Several small gallstones are present. No active gallbladder process seen. No biliary tree dilatation. Symmetric renal function is seen with no hydronephrosis or suspicious renal mass. No pyelonephritis or acute parenchymal process. No bladder abnormalities. No adrenal abnormalities. No gastric dilatation or gastric wall thickening. No dilated small bowel. Terminal ileum is normal in appearance. The appendix is grossly abnormal. Appendix is dilated to 13 mm. A small appendicolith is present. There is stranding in the periappendiceal fat. Reactive lymph nodes are present in the adjacent fatty tissues. The appendix and cecum are positioned in the right mid abdomen with the appendix extending medially. There is stranding along the right pararenal fascia. There is a mild secondary involvement of the third portion duodenum. No free air or pneumatosis. No abscess or extravasation of bowel content identifiable. No hernia, mass or bulky lymphadenopathy. Prominent lumbar spine disc and bone degenerative change present. No pathologic bone process. 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 Findings telephoned to the referring clinician 9:06 p.m. IMPRESSION: Acute appendicitis. No abscess, free air or other complicating factor. The appendix is positioned in the right mid abdomen along the right renal fascia. This is superior to the typical right lower quadrant position. Cholelithiasis without acute gallbladder finding. Surgery: Date of Procedure: 03/02/2020 Surgeon: Ras Dee MD, Preoperative Diagnosis: Acute appendicitis. Postoperative Diagnosis: Acute appendicitis. Procedure Performed: Laparoscopic appendectomy. Anesthesia: General endotracheal plus local with local with 0.5% Marcaine with epinephrine. Estimated Blood Loss: Less than 10 mL. Specimen: Vermiform appendix. Findings: Suppurative changes, no gross perforation or spillage. Complications: None. Drains: 7-Welsh round DENAE drain in the right hepatic fossa, transferred to recovery room in good condition. 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 Patient found to have appendicitis. Patient admitted for further evaluation and treatment. Hospital Course: Patient presented with abdominal pain. This was secondary to acute appendicitis. This was confirmed on CT scan. Surgery was consulted. Surgery recommended intervention. Patient had laparoscopic appendectomy. The patient tolerated procedure well. DENAE drain remains in place. Patient has done well post operatively. He is able to tolerate a soft diet. No significant abdominal pain noted. No significant nausea vomiting noted. At discharge patient will continue with Augmentin 100 mg twice daily for 5 days. Patient will also be given a limited supply of tramadol 50 mg 1 pill twice daily as needed for pain. The patient will be given on post operative care instructions. This will include DENAE tube instructions and monitoring. Recommendation is for the patient to follow up with surgery this Wednesday to follow up this hospitalization. Recommend no further heavy lifting, pushing or pulling. Continue with incentive spirometer. CT also revealed degenerative disc and joint changes to the lumbar spine with spinal stenosis at the L3-4 and L4-5 area. Patient without significant pain. Recommend no further heavy lifting, pushing or pulling. If patient continues to have back pain in the future, will recommend further evaluation by his PCP or with pain management. Patient found to have elevated blood pressure. This may be related to his abdominal pain. Other consideration is pre hypertension. Recommend to monitor blood pressure closely. Recommend to maintain blood pressure less than 150/80. If consistently above 140/90 patient may require medication for hypertension. This can be further addressed by his PCP. Vital Signs/Physical Exam: Temp Pulse Resp BP Pulse Ox 97.5 F 107 H 20 168/93 H 94 03/04/20 09:23 03/04/20 09:23 03/04/20 09:43 03/04/20 09:23 03/04/20 09:43 General: Alert, In no apparent distress, Oriented x3, Cooperative HEENT: Atraumatic Neck: Supple Respiratory: Clear to auscultation bilaterally, Normal air movement Cardiovascular: Normal pulses, Regular rate/rhythm Gastrointestinal: Other (Appropriate abdominal postop pain. Drain in place.) Musculoskeletal: No erythema, No tenderness, No warmth Integumentary: No tenderness/swelling, No erythema, No warmth, No cyanosis Neurological: Normal speech, Normal strength at 5/5 x4 extr, Normal tone, Normal affect Laboratory Data at Discharge: WBC 13.0 K/uL (4.3-10.9) H D 03/04/20 06:02 Hgb 11.5 g/dL (13.6-17.9) L 03/04/20 06:02 Hct 35.5 % (39.6-49.0) L 03/04/20 06:02 Plt Count 167 K/uL (152-406) 03/04/20 06:02 PT 14.1 SECONDS (9.5-12.5) H 03/02/20 07:09 INR 1.20 03/02/20 07:09 APTT 27.7 SECONDS (24.3-36.9) 03/02/20 07:09 Sodium 142 mmol/L (136-145) 03/04/20 06:02 Potassium 3.8 mmol/L (3.5-5.1) 03/04/20 06:02 BUN 9 mg/dL (7-18) 03/04/20 06:02 Creatinine 0.73 mg/dL (0.55-1.3) 03/04/20 06:02 Glucose 98 mg/dL (74-106) 03/04/20 06:02 Phosphorus 1.7 mg/dL (2.5-4.9) L 03/04/20 06:02 Magnesium 2.1 mg/dL (1.8-2.4) 03/04/20 06:02 Total Bilirubin 0.5 mg/dL (0.2-1.0) 03/03/20 06:21 AST 29 U/L (15-37) 03/03/20 06:21 ALT 16 U/L (12-78) 03/03/20 06:21 Alkaline Phosphatase 76 U/L (45-117) 03/03/20 06:21 Lipase 64 U/L (73-393) L 03/03/20 06:21 Home Medications: Amox/Clavulanate [Augmentin 500-125 mg Tab] 500 mg PO BID #10 tab 03/04/20 traMADol HCL [Ultram*] 50 mg PO BID PRN #10 tab 03/04/20 New Medications: Amox/Clavulanate [Augmentin 500-125 mg Tab] 500 mg PO BID #10 tab traMADol HCL [Ultram*] 50 mg PO BID PRN #10 tab PRN Reason: Pain Patient Discharge Instructions: 1. Follow up with PCP to establish care and follow up this hospitalization. 2. Patient presented with abdominal pain. This was secondary to acute appendicitis. This was confirmed on CT scan. Surgery was consulted. Surgery recommended intervention. Patient had laparoscopic appendectomy. The patient tolerated procedure well. DENAE drain remains in place. Patient has done well post operatively. He is able to tolerate a soft diet. No significant abdominal pain noted. No significant nausea vomiting noted. At discharge patient will continue with Augmentin 100 mg twice daily for 5 days. Patient will also be given a limited supply of tramadol 50 mg 1 pill twice daily as needed for pain. The patient will be given on post operative care instructions. This will include DENAE tube instructions and monitoring. Recommendation is for the patient to follow up with surgery this Wednesday to follow up this hospitalization. Recommend no further heavy lifting, pushing or pulling. Continue with incentive spirometer. 3. CT also revealed degenerative disc and joint changes to the lumbar spine with spinal stenosis at the L3-4 and L4-5 area. Patient without significant pain. Recommend no further heavy lifting, pushing or pulling. If patient continues to have back pain in the future, will recommend further evaluation by his PCP or with pain management. 4. Patient found to have elevated blood pressure. This may be related to his a bdominal pain. Other consideration is pre hypertension. Recommend to monitor blood pressure closely. Recommend to maintain blood pressure less than 150/80. If consistently above 140/90 patient may require medication for hypertension. This can be further addressed by his PCP. Diet: Regular Activity: No lifting more than 10 lbs Followup: Ras Dee MD [ACTIVE - CAN ADMIT] - 1 Week Time spent managing pt's care (in minutes): 55
[2020-03-04] MEDS ORDERED: PIPER/TAZO/NS 3.375gm 3.375 GM/100 ML BAG IVPB SCH (11:00)
[2020-03-04 12:21] VITALS: BP 148/79; TEMP 97
== END 2020-03-04 12:20 | disposition home or self-care (01) | DRG 343 ==
LOC: ER 15:45 → 4TH 22:18 → 2ND 03-02 03:20
PROVIDERS: ADMIT Family Medicine; ATTEND Family Medicine
PROC: 0W9G40Z Drainage of Peritoneal Cavity with Drainage Device, Percutaneous Endoscopic Approach (ICD-10-PCS; 2020-03-02)
PROC: 0DTJ4ZZ Resection of Appendix, Percutaneous Endoscopic Approach (ICD-10-PCS; principal; 2020-03-02 09:00)
DX: K35.80 Unspecified acute appendicitis (principal); I10 Essential (primary) hypertension; J44.9 Chronic obstructive pulmonary disease, unspecified; M48.061 Spinal stenosis, lumbar region without neurogenic claudication; M51.36 Other intervertebral disc degeneration, lumbar region; Z87.891 Personal history of nicotine dependence; Z20.828 Contact with and (suspected) exposure to other viral communicable diseases
CPT/HCPCS: 36415; 71045; 74022; 74177; 80048; 80053; 80076; 83605; 83690; 83735; 83880; 84100; 84145; 84484; 85025; 85610; 85730; 87040; 87205; 87804; 88304; 93005; 94640; 96361; 96365; 96367; 96375; 97161; 99285; J0456; J0696; J1650; J2405; J2543; J2704; J2710; J2930; J3010; J3475; J7030; J7120; Q9966

== ENCOUNTER 2020-03-21 15:20 | Emergency (ER) | payer SELFPAY ==
[2020-03-21 17:13] LABS: Protime INR 1.01
[2020-03-21 17:14] LABS: Absolute Lymphocytes (CBC) 2.4 K/uL (0.7-4.9); Hematocrit 41.8 % (39.6-49.0); Lymphocytes % 34.7 % (15.3-44.8); RBC Red Blood Cell Count 4.88 M/uL (4.33-5.43)
[2020-03-21 17:31] LABS: ALT/SGPT 22 U/L (12-78); AST/SGOT 21 U/L (15-37); Albumin 3.5 g/dL (3.4-5.0); Alkaline Phosphatase 118 U/L (45-117); BUN Blood Urea Nitrogen 15 mg/dL (7-18); Bicarbonate 29 mmol/L (21-32); Bilirubin Direct 0.1 mg/dL (0-0.2); Bilirubin Total 0.4 mg/dL (0.2-1.0); Glucose Level 92 mg/dL (74-106); Magnesium 2.1 mg/dL (1.8-2.4); NT PRO-BNP 91 pg/mL (<450); Potassium 3.9 mmol/L (3.5-5.1); Protein, Total 8.8 g/dL (6.4-8.2); Sodium Level 137 mmol/L (136-145); Troponin (Emerg Dept Use Only) < 0.02 ng/mL (0.0-0.045)
--- NOTE | 2020-03-21 17:40 | RAD REPORT ---
EXAM DESCRIPTION: RAD - Chest Single View - 03/21/2020 5:07 pm CLINICAL HISTORY: shortness of breath Chest pain. COMPARISON: Abdomen Acute Series dated 03/02/2020; Chest Single View dated 03/01/2020 FINDINGS: Portable technique limits examination quality. The lungs are emphysematous but grossly clear. The heart is normal in size. No displaced fractures. IMPRESSION: No acute intrathoracic process suspected.
[2020-03-21 18:08] LABS: Urine Blood NEGATIVE (NEG); Urine Glucose NEGATIVE (NEG); Urine Protein NEGATIVE (NEG); Urine Specific Gravity 1.025 (1.005-1.030)
--- NOTE | 2020-03-21 19:26 | RAD REPORT ---
EXAM DESCRIPTION: CT - Chest For Pe Angio - 03/21/2020 6:49 pm CLINICAL HISTORY: Chest pain. shortness of breath COMPARISON: Abdomen Pelvis W Contrast dated 03/01/2020 TECHNIQUE: CT angiogram of the pulmonary arteries was performed with MIP. All CT scans are performed using dose optimization technique as appropriate and may include automated exposure control or mA/KV adjustment according to patient size. FINDINGS: No evidence of pulmonary thromboembolism. No acute aortic finding demonstrated. Advanced COPD is seen with linear atelectasis in the left lung base. No significant pericardial or pleural fluid. No concerning bony finding. IMPRESSION: No evidence of pulmonary thromboembolism. Advanced COPD.
--- NOTE | 2020-03-21 19:34 | ER ---
Nurse's Notes [facility] Name: Rich Barraza Age: 84 yrs Sex: Male : 1935 Arrival Date: 03/21/2020 Time: 15:22 Bed 18 Private MD: Diagnosis: candidal infection of the glans penis;COPD Presentation: 03/21 15:29 Chief complaint: Patient states: SOB for 3 weeks since having appendectomy here. Pain ll1 and swelling to scrotal area for 3 weeks. Sent by physician for eval. Coronavirus screen: Proceed with normal triage. Patient reports a cough. Patient reports shortness of breath or difficulty breathing. Patient denies measured and/or subjective temperature greater than 100.4F prior to today's visit. Patient denies travel on a cruise ship or to a country the [facility] currently lists as an affected area. Patient denies contact with known and/or suspected case of COVID-19. Ebola Screen: Patient denies travel to an Ebola-affected area in the 21 days before illness onset. Initial Sepsis Screen: Does the patient meet any 2 criteria? No. Patient's initial sepsis screen is negative. Does the patient have a suspected source of infection? No. Patient's initial sepsis screen is negative. Risk Assessment: Do you want to hurt yourself or someone else? Patient reports no desire to harm self or others. Onset of symptoms was March 04, 2020. 15:29 Method Of Arrival: Ambulatory ll1 15:29 Acuity: KOFI 3 ll1 Historical: - Allergies: 15:32 No Known Allergies; ll1 - PSHx: 15:32 Appendectomy; ll1 - Social history:: Smoking status: Patient/guardian denies using tobacco, the patient reports quitting approximately 15 years ago, Patient/guardian denies using alcohol, street drugs, tobacco products. Screenin:52 Abuse screen: Denies threats or abuse. Nutritional screening: No deficits noted. Tuberculosis screening: No symptoms or risk factors identified. Fall Risk None identified. Assessment: 16:30 General: Appears in no apparent distress. Behavior is calm, cooperative. Neuro: Level ah of Consciousness is awake, alert, Oriented to person, place, time, situation. Cardiovascular: Heart tones S1 S2 present Capillary refill < 3 seconds Patient's skin is warm and dry. Pulses are palpable in right radial artery and left radial artery Rhythm is sinus rhythm. Respiratory: Reports shortness of breath on exertion Airway is patent Respiratory effort is even, unlabored, Breath sounds are clear bilaterally. : Pt states that he has discomfort in his penis when he urinates Reports burning with urination. Derm: Skin is intact, is healthy with good turgor. 18:42 Reassessment: Pt to CT scan via stretcher. 19:45 Reassessment: Patient and/or family updated on plan of care and expected duration. Pain ah level reassessed. Patient is alert, oriented x 3, equal unlabored respirations, skin warm/dry/pink. Patient denies pain at this time. Vital Signs: 15:29 BP 156 / 84; Pulse 75; Resp 18; Temp 97.9; Pulse Ox 96% ; Pain 0/10; ll1 17:15 BP 139 / 76; Pulse 75; Resp 21; Pulse Ox 98% ; ah ED Course: 15:22 Patient arrived in ED. fj1 15:32 Triage completed. ll1 15:32 Arm band placed on. 1 16:21 Froilan Montes PA is PHCP. [facility] 16:21 Doug Posey MD is Attending Physician. [facility] 16:30 Kiley Sampson, TYRA is Primary Nurse. ah 16:35 Placed in gown. Bed in low position. Call light in reach. Side rails up X 1. Verbal jp3 reassurance given. quality assurance monitor chassis on. Pulse ox on. NIBP on. 16:45 Inserted saline lock: 20 gauge in right antecubital area, using aseptic technique. jp3 Blood collected. Patient maintains SpO2 saturation greater than 95% on room air. 16:45 Initial lab(s) drawn, by or, sent to lab. jp3 16:50 EKG done, by ED staff, reviewed by Froilan MENDENHALL X-ray(s) taken. jp3 17:07 XRAY Chest (1 view) In Process Unspecified. EDMS 17:10 Urine collected: clean catch specimen, clear, isabela colored. jp3 18:50 CT Chest For PE Angio In Process Unspecified. EDMS 19:45 No provider procedures requiring assistance completed. IV discontinued, intact, ah bleeding controlled, No redness/swelling at site. Pressure dressing applied. Administered Medications: No medications were administered Outcome: 19:34 Discharge ordered by MD. clement 19:45 Discharged to home ambulatory. 19:45 Condition: good 19:45 Discharge instructions given to patient, Instructed on discharge instructions, follow up and referral plans. Demonstrated understanding of instructions, follow-up care, medications, Prescriptions given X 1. 19:57 Patient left the ED. sg Signatures: Dispatcher [employer] EDGanga Castillo RN RN Froilan Montes PA PA jmm Pisarski, Jacob jp3 Manuel Zaragoza fj1 Kiley Sampson RN RN Catherine Chao RN RN ll1
--- NOTE | 2020-03-21 19:34 | EDPHYS ---
Physician Documentation [facility] Name: Rich Barraza Age: 84 yrs Sex: Male : 1935 Arrival Date: 03/21/2020 Time: 15:22 Bed 18 Private MD: ED Physician Doug Posey HPI: 03/21 16:40 This 84 yrs old Male presents to ER via Ambulatory with complaints of jmm Shortness Of Breath, Edema, Pain. 16:40 The patient has shortness of breath with light activity. Onset: The symptoms/episode jmm began/occurred chronic. Duration: The symptoms are continuous. This is an 84 year old male 3 weeks s/p lap appendectomy that presents to the ED with complaints of penile pain. Patient denies abdominal pain, fever, vomiting. Patient also complains of shortness of breath which has been chronic. . Historical: - Allergies: 15:32 No Known Allergies; ll1 - PSHx: 15:32 Appendectomy; ll1 - Social history:: Smoking status: Patient/guardian denies using tobacco, the patient reports quitting approximately 15 years ago, Patient/guardian denies using alcohol, street drugs, tobacco products. ROS: 16:40 Constitutional: Negative for fever, chills, and weight loss, Cardiovascular: Negative jmm for chest pain, palpitations, and edema. 16:40 Respiratory: Positive for shortness of breath. 16:40 Abdomen/GI: Negative for abdominal pain. 16:40 : Positive for 16:40 All other systems are negative. Exam: 16:40 Constitutional: This is a well developed, well nourished patient who is awake, alert, jmm and in no acute distress. Head/Face: atraumatic. Eyes: EOMI, no conjunctival erythema appreciated ENT: Moist Mucus Membranes Neck: Trachea midline, Supple Chest/axilla: Normal chest wall appearance and motion. Cardiovascular: Regular rate and rhythm. No edema appreciated Respiratory: Normal respirations, no respiratory distress appreciated Abdomen/GI: Non distended, soft Back: Normal ROM 16:40 Abdomen/GI: Inspection: abdomen appears normal, Bowel sounds: normal, Palpation: abdomen is soft and non-tender, in all quadrants. 16:40 : hypospadia, with erythema noted to the right side of the glans. 16:40 Musculoskeletal/extremity: ROM: intact in all extremities. 16:40 Skin: Appearance: Color: normal in color. 16:40 Neuro: Orientation: is normal, Mentation: is normal, Memory: is normal. 16:40 Psych: Behavior/mood is pleasant, cooperative. 17:07 ECG was reviewed by the Attending Physician. [facility] Vital Signs: 15:29 BP 156 / 84; Pulse 75; Resp 18; Temp 97.9; Pulse Ox 96% ; Pain 0/10; ll1 17:15 BP 139 / 76; Pulse 75; Resp 21; Pulse Ox 98% ; ah MDM: 16:36 Patient medically screened. [facility] 19:32 Data reviewed: vital signs, nurses notes. Counseling: I had a detailed discussion with [facility] the patient and/or guardian regarding: the historical points, exam findings, and any diagnostic results supporting the discharge/admit diagnosis, lab results, radiology results, the need for outpatient follow up, to return to the emergency department if symptoms worsen or persist or if there are any questions or concerns that arise at home. ED course: Patient is alert and non toxic in appearance in the ED. No PE, acute process on CT. PE findings concerning for candidal infection of the glans. Patient advised to follow up with urology for further evaluation. Patient understood and agrees with the plan of care. . 03/21 16:23 Order name: Basic Metabolic Panel; Complete Time: 17:34 [facility] 03/21 16:23 Order name: CBC with Diff; Complete Time: 17:17 [facility] 03/21 16:23 Order name: LFT's; Complete Time: 17:34 [facility] 03/21 16:23 Order name: Magnesium; Complete Time: 17:34 [facility] 03/21 16:23 Order name: NT PRO-BNP; Complete Time: 17:34 [facility] 03/21 16:23 Order name: PT-INR; Complete Time: 17:17 [facility] 03/21 16:23 Order name: Troponin (emerg Dept Use Only); Complete Time: 17:34 [facility] 03/21 16:23 Order name: XRAY Chest (1 view); Complete Time: 17:45 [facility] 03/21 16:23 Order name: EKG; Complete Time: 16:25 [facility] 03/21 16:23 Order name: Cardiac monitoring; Complete Time: 17:16 [facility] 03/21 16:23 Order name: EKG - Nurse/Tech; Complete Time: 17:16 [facility] 03/21 16:23 Order name: IV Saline Lock; Complete Time: 17:16 [facility] 03/21 17:17 Order name: Urine Dipstick--Ancillary (enter results); Complete Time: 18:16 em1 03/21 18:28 Order name: CT Chest For PE Angio; Complete Time: 19:32 [facility] 03/21 16:23 Order name: Labs collected and sent; Complete Time: 17:16 [facility] 03/21 16:23 Order name: O2 Per Protocol; Complete Time: 16:44 [facility] 03/21 16:23 Order name: O2 Sat Monitoring; Complete Time: 16:44 [facility] 03/21 16:36 Order name: Urine Dipstick-Ancillary (obtain specimen); Complete Time: 17:16 jm EC:07 Rate is 75 beats/min. Rhythm is regular. QRS [place] is Normal. CO interval is normal. QRS jmm interval is normal. QT interval is normal. No Q waves. T waves are Normal. No ST changes noted. Reviewed by me. Administered Medications: No medications were administered Disposition: 03/22 17:33 Co-signature as Attending Physician, Doug Posey MD I agree with the assessment and kdr plan of care. Disposition: 03/21/20 19:34 Discharged to Home. Impression: candidal infection of the glans penis, COPD. - Condition is Stable. - Discharge Instructions: Balanitis, Chronic Obstructive Pulmonary Disease. - Prescriptions for nystatin 100,000 unit/gram Topical ointment - apply 1 application by TOPICAL route 2 times per day; 1 tube. - Medication Reconciliation Form, Thank You Letter, Antibiotic Education, Prescription Opioid Use form. - Follow up: Private Physician; When: 2 - 3 days; Reason: Recheck today's complaints, Continuance of care, Re-evaluation by your physician. Signatures: Dispatcher [employer] Ganga Garcia, Doug Barrett RN, MD MD kdr Mickail, Joel, PA PA jmm Lewis, Lynsay RN RN ll1 Corrections: (The following items were deleted from the chart) 03/21 19:57 19:34 03/21/2020 19:34 Discharged to Home. Impression: candidal infection of the glans sg penis; COPD. Condition is Stable. Forms are Medication Reconciliation Form, Thank You Letter, Antibiotic Education, Prescription Opioid Use. Follow up: Private Physician; When: 2 - 3 days; Reason: Recheck today's complaints, Continuance of care, Re-evaluation by your physician. urbano
[2020-03-21 20:30] VITALS: TEMP 97.9
[2020-03-21 20:31] VITALS: BP 139/76; O2SAT 98
== END 2020-03-21 19:57 | disposition home or self-care (01) ==
LOC: ER 15:20
DX: J44.9 Chronic obstructive pulmonary disease, unspecified (principal); N48.1 Balanitis
CPT/HCPCS: 36415; 71045; 71275; 80048; 80076; 81003; 83735; 83880; 84484; 85025; 85610; 93005; 99285; Q9967

== ENCOUNTER 2022-03-26 23:03 | Inpatient (IN) | payer SELFPAY ==
--- OUTSIDE RECORDS SUMMARY | 2022-03-26 23:11 | XMS REPORT | Continuity of Care Document ---
:1935 Author Organization [facility] t Address [address] [place] [address] Care Team Providers Name Role Phone MISSAEL NELSON Attending Clinician Unavailable AZEEM ELIZONDO Attending Clinician Unavailable Problems This patient has no known problems. Allergies, Adverse Reactions, Alerts Allergy Allergy Status Severity Reaction(s) Onset Inactive Treating Comm ents Source Name Type Date Date Clinician NO KNOWN Drug Active [facility] Medications This patient has no known medications. Procedures This patient has no known procedures. Encounters Start End Encounter Admission Attending Care Care Encounter Source Date/Time Date/Time Type Type Clinicians Facility Department ID 2021-03-31 2021-03-31 [id number] 10:00:00 10:00:00 MISSAEL [id number] rossi [facility] 2021-03-31 2021-03-31 Outpatient R LESLIE [facility] [id number] [facility] 10:00:00 10:00:00 MISSAEL swenson [facility] 2021-03-28 2021-03-28 [facility] [id number] [facility] 17:40:00 17:40:00 MASSIMO [facility] Results This patient has no known results.
[2022-03-26 23:46] LABS: Absolute Lymphocytes (CBC) 2.3 K/uL (0.7-4.9); Lymphocytes % 31.3 % (15.3-44.8); MPV 7.6 fL (7.6-11.3); RBC Red Blood Cell Count 4.63 M/uL (4.33-5.43)
[2022-03-26 23:47] LABS: Protime INR 1.04
[2022-03-26] MEDS ORDERED: AZITHROMYCIN 250 MG TAB ONE (23:54)
[2022-03-26] MEDS ORDERED: NA CHLORIDE 0.9% 250 ML ONE (23:54)
[2022-03-26] MEDS ORDERED: CEFTRIAXONE 1000 MG/VIAL ONE (23:54)
[2022-03-26] MEDS ORDERED: NA CHLORIDE 0.9% 1,000 ML ONE (23:54)
[2022-03-27 00:05] LABS: Albumin 3.2 g/dL (3.4-5.0); Bilirubin Direct 0.1 mg/dL (0-0.2); Bilirubin Total 0.3 mg/dL (0.2-1.0); Magnesium 2.1 mg/dL (1.8-2.4); Protein, Total 7.8 g/dL (6.4-8.2); Troponin High Sensitivity 6.5 pg/mL (<58.9)
--- NOTE | 2022-03-27 00:05 | EDPHYS ---
Physician Documentation [facility] Name: Rich Barraza Age: 86 yrs Sex: Male : 1935 Arrival Date: 03/26/2022 Time: 23:04 Bed 17 Private MD: ED Physician Magdi Pires HPI: 03/26 23:16 This 86 yrs old Male presents to ER via Unassigned with complaints of trinity Breathing Difficulty. 23:16 The patient has shortness of breath at rest, with light activity. Onset: The trinity symptoms/episode began/occurred 2 day(s) ago. Duration: The symptoms are continuous, and are steadily getting worse. The patient's shortness of breath is aggravated by coughing, supine position, talking, walking, is alleviated by inhaler, nebulizer treatment, pursed lip breathing, rest, application of supplemental oxygen. Associated signs and symptoms: The patient has no apparent associated signs or symptoms. Severity of symptoms: At their worst the symptoms were moderate in the emergency department the symptoms have resolved. The patient has experienced similar episodes in the past, multiple times. Historical: - Allergies: 23:23 No Known Allergies; vc1 - Home Meds: 23:23 BRESALTIC [Active]; vc1 - PMHx: 23:23 Asthma; vc1 - Immunization history:: Adult Immunizations up to date. - Social history:: Smoking status: Patient denies any tobacco usage or history of. - Family history:: not pertinent. ROS: 23:16 Constitutional: Negative for fever, chills, and weight loss, Eyes: Negative for injury, trinity pain, redness, and discharge, ENT: Negative for injury, pain, and discharge, Neck: Negative for injury, pain, and swelling, Cardiovascular: Negative for chest pain, palpitations, and edema, Abdomen/GI: Negative for abdominal pain, nausea, vomiting, diarrhea, and constipation, Back: Negative for injury and pain, : Negative for injury, bleeding, discharge, and swelling, MS/Extremity: Negative for injury and deformity, Skin: Negative for injury, rash, and discoloration, Neuro: Negative for headache, weakness, numbness, tingling, and seizure, Psych: Negative for depression, anxiety, suicide ideation, homicidal ideation, and hallucinations, Allergy/Immunology: Negative for hives, rash, and allergies, Endocrine: Negative for neck swelling, polydipsia, polyuria, polyphagia, and marked weight changes, Hematologic/Lymphatic: Negative for swollen nodes, abnormal bleeding, and unusual bruising. 23:16 Respiratory: Positive for cough, shortness of breath, wheezing, inspiratory, expiratory. Exam: 23:16 Constitutional: This is a well developed, well nourished patient who is awake, alert, trniity and in no acute distress. Head/Face: Normocephalic, atraumatic. Eyes: Pupils equal round and reactive to light, extra-ocular motions intact. Lids and lashes normal. Conjunctiva and sclera are non-icteric and not injected. Cornea within normal limits. Periorbital areas with no swelling, redness, or edema. ENT: Nares patent. No nasal discharge, no septal abnormalities noted. Tympanic membranes are normal and external auditory canals are clear. Oropharynx with no redness, swelling, or masses, exudates, or evidence of obstruction, uvula midline. Mucous membranes moist. Neck: Trachea midline, no thyromegaly or masses palpated, and no cervical lymphadenopathy. Supple, full range of motion without nuchal rigidity, or vertebral point tenderness. No Meningismus. Chest/axilla: Normal chest wall appearance and motion. Nontender with no deformity. No lesions are appreciated. Cardiovascular: Regular rate and rhythm with a normal S1 and S2. No gallops, murmurs, or rubs. Normal PMI, no JVD. No pulse deficits. Abdomen/GI: Soft, non-tender, with normal bowel sounds. No distension or tympany. No guarding or rebound. No evidence of tenderness throughout. Back: No spinal tenderness. No costovertebral tenderness. Full range of motion. Male : Normal genitalia with no discharge or lesions. Skin: Warm, dry with normal turgor. Normal color with no rashes, no lesions, and no evidence of cellulitis. MS/ Extremity: Pulses equal, no cyanosis. Neurovascular intact. Full, normal range of motion. Neuro: Awake and alert, GCS 15, oriented to person, place, time, and situation. Cranial nerves II-XII grossly intact. Motor strength 5/5 in all extremities. Sensory grossly intact. Cerebellar exam normal. Normal gait. Psych: Awake, alert, with orientation to person, place and time. Behavior, mood, and affect are within normal limits. 23:16 Respiratory: mild respiratory distress is noted, moderate respiratory distress is noted, Respirations: labored breathing, that is moderate, Breath sounds: decreased breath sounds, that are moderate, are located in both bases, rhonchi, that are mild, are scattered, stridor, is not appreciated, + upper airway congestion. wheezing: inspiratory expiratory that is moderate, is heard diffusely. Vital Signs: 23:21 BP 181 / 107; Pulse 97; Resp 30; Pulse Ox 94% on R/A; vc1 23:29 Temp 97.7; Weight 74.84 kg; Height 5 ft. 5 in. (165.10 cm); vc1 03/27 00:00 BP 152 / 80; Pulse 84; Resp 23; Pulse Ox 100% ; vc1 01:00 BP 145 / 85; Pulse 97; Resp 17; Pulse Ox 97% on 3 lpm NC; vc1 01:53 BP 156 / 80; Pulse 93; Resp 19; Pulse Ox 97% on 2 lpm NC; vc1 03/26 23:29 Body Mass Index 27.46 (74.84 kg, 165.10 cm) vc1 MDM: 03/26 23:11 Patient medically screened. trinity 23:16 Differential diagnosis: Anemia pneumonia. Antibiotic administration: Rocephin and trinity Zithromax given. The patient's Wells Deep Vein Thrombosis Score was calculated as follows: Heart Rate >100 BPM (1.5 Pts) Total Score: 0-2 Pts- Low Risk. The patient's pulmonary embolism risk score was calculated as follows: the patients heart rate is greater than 100 beats per minute (1.5 Pts) Total Score: 0-2 points. This patient was found to be at low risk for a pulmonary embolism by using the Well's assessment criteria. Immunization status: Pneumococcal vaccine: Influenza vaccine: Data reviewed: vital signs, nurses notes, lab test result(s), EKG, radiologic studies, CT scan, plain films. 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 Counseling: I had a detailed discussion with the patient and/or guardian regarding: the historical points, exam findings, and any diagnostic results supporting the discharge/admit diagnosis, lab results, radiology results, the need for further work-up and treatment in the hospital. 03/26 23:15 Order name: Basic Metabolic Panel; Complete Time: 00:13 [facility] 03/26 23:15 Order name: CBC with Diff; Complete Time: 23:48 [facility] 03/26 23:15 Order name: LFT's; Complete Time: 00:13 [facility] 03/26 23:15 Order name: Magnesium; Complete Time: 00:13 [facility] 03/26 23:15 Order name: NT PRO-BNP; Complete Time: 00:13 [facility] 03/26 23:15 Order name: PT-INR; Complete Time: 23:48 [facility] 03/26 23:15 Order name: Troponin HS; Complete Time: 00:13 [facility] 03/26 23:15 Order name: XRAY Chest (1 view) [facility] 03/26 23:21 Order name: Blood Culture Adult (2) [facility] 03/26 23:58 Order name: COVID-19 SARS RT PCR (Document "Date of Onset" if Symptomatic); Complete vc1 Time: 01:48 03/26 23:15 Order name: EKG; Complete Time: 23:16 [facility] 03/26 23:16 Order name: Cardiac monitoring; Complete Time: 23:26 [facility] 03/26 23:16 Order name: EKG - Nurse/Tech; Complete Time: 23:26 [facility] 03/26 23:16 Order name: IV Saline Lock; Complete Time: 23:26 [facility] 03/26 23:16 Order name: Labs collected and sent; Complete Time: 23:26 [facility] 03/26 23:16 Order name: O2 Per Protocol; Complete Time: 23:26 [facility] 03/26 23:16 Order name: O2 Sat Monitoring; Complete Time: 23:26 [facility] Administered Medications: 23:21 Drug: AtroVENT (ipratropium) Aerosol 0.5 mg Route: Inhalation; vc1 23:21 Drug: SOLU-Medrol (methylPrednisoLONE) 125 mg Route: IVP; Site: left antecubital; vc1 03/27 01:51 Follow up: Response: No adverse reaction; Marked relief of symptoms vc1 03/26 23:21 Drug: Albuterol 7.5 mg Route: Inhalation; vc1 03/27 00:13 Drug: Rocephin (cefTRIAXone) 1 grams Route: IV; Rate: per protocol; Site: left vc1 antecubital; 01:51 Follow up: Response: No adverse reaction; IV Intake: 250ml vc1 01:51 Follow up: Response: No adverse reaction vc1 02:04 Follow up: Response: No adverse reaction; IV Status: Completed infusion; IV Intake: [id number] 00:13 Drug: Zithromax (azithromycin) 500 mg Route: PO; vc1 01:51 Follow up: Response: No adverse reaction vc1 00:14 Drug: NS 0.9% 1000 ml Route: IV; Rate: 125 ml/hr; Site: left antecubital; vc1 02:00 Follow up: IV Status: Infusion continued upon admission vc1 00:14 Drug: NS 0.9% 250 ml Route: IV; Rate: bolus; Site: left antecubital; vc1 01:51 Follow up: IV Intake: 250ml vc1 01:52 Follow up: Response: No adverse reaction; IV Status: Completed infusion; IV Intake: vc1 250ml Disposition Summary: 03/27/22 00:03 Hospitalization Ordered Hospitalization Status: Observation trinity Provider: Saman Rod cha Location: Telemetry/MedSurg (observation) trinity Condition: Stable trinity Problem: new trinity Symptoms: have improved triniyt Bed/Room Type: Standard trinity Room Assignment: 224(03/27/22 01:40) lp1 Diagnosis - Dyspnea trinity - Unspecified asthma with (acute) exacerbation trinity - Essential (primary) hypertension trinity Forms: - Medication Reconciliation Form trinity - SBAR form trinity Signatures: Dispatcher [employer] EDMagdi Smith MD MD cha Pena, Laura, RN RN lp1 Trixie Alvarez RN RN vc1 Belkis Jimenez PA PA sb3 Corrections: (The following items were deleted from the chart) 01:40 00:03 trinity lp1
--- NOTE | 2022-03-27 00:05 | ER ---
Nurse's Notes [facility] Name: Rich Barraza Age: 86 yrs Sex: Male : 1935 Arrival Date: 03/26/2022 Time: 23:04 Bed 17 Private MD: Diagnosis: Dyspnea;Unspecified asthma with (acute) exacerbation;Essential (primary) hypertension Presentation: 03/26 23:21 Chief complaint: Patient's son or daughter states: "He has been short of breath for the vc1 last few days but today is worse and he says he just can't breath. He has asthma and tried his inhaler but it didn't help.". Coronavirus screen: Vaccine status: Patient reports being unvaccinated. At this time, the client does not indicate any symptoms associated with coronavirus-19. Ebola Screen: No symptoms or risks identified at this time. Initial Sepsis Screen: Does the patient meet any 2 criteria? No. Patient's initial sepsis screen is negative. Does the patient have a suspected source of infection? No. Patient's initial sepsis screen is negative. Risk Assessment: Do you want to hurt yourself or someone else? Patient reports no desire to harm self or others. Onset of symptoms. 23:21 Method Of Arrival: Wheelchair vc1 23:21 Acuity: KOFI 2 vc1 Triage Assessment: 23:28 General: Appears distressed, obese, Behavior is anxious. Respiratory: Reports shortness vc1 of breath at rest Airway is patent Respiratory effort is labored, asymmetrical, Respiratory pattern is tachypnea Onset: The symptoms/episode began/occurred LAST FEW DAYS. Respiratory: Breath sounds with wheezes bilaterally. the patient has moderate shortness of breath. Historical: - Allergies: 23:23 No Known Allergies; vc1 - Home Meds: 23:23 BRESALTIC [Active]; vc1 - PMHx: 23:23 Asthma; vc1 - Immunization history:: Adult Immunizations up to date. - Social history:: Smoking status: Patient denies any tobacco usage or history of. - Family history:: not pertinent. Screenin:26 Abuse screen: Denies threats or abuse. Nutritional screening: No deficits noted. vc1 Tuberculosis screening: No symptoms or risk factors identified. Fall Risk None identified. Assessment: 23:26 General: Appears distressed, obese, Behavior is anxious. Pain: Denies pain. Neuro: vc1 Level of Consciousness is awake, alert, obeys commands, Oriented to person, place, time, situation, Appropriate for age. Cardiovascular: Rhythm is sinus tachycardia. Respiratory: Airway is patent Respiratory effort is labored, asymmetrical, with nasal flaring, Respiratory pattern is tachypnea Breath sounds with wheezes bilaterally. the patient has moderate shortness of breath. GI: Abdomen is round obese. : No deficits noted. EENT: No deficits noted. Derm: No deficits noted. 03/27 01:00 Reassessment: Patient and/or family updated on plan of care and expected duration. Pain vc1 level reassessed. Patient is alert, oriented x 3, equal unlabored respirations, skin warm/dry/pink. Patient states symptoms have improved. 01:52 Reassessment: Patient and/or family updated on plan of care and expected duration. Pain vc1 level reassessed. Patient is alert, oriented x 3, equal unlabored respirations, skin warm/dry/pink. Patient states feeling better. Patient states symptoms have improved. Respiratory: Airway is patent Respiratory effort is unlabored, Respiratory pattern is regular, symmetrical. 02:00 Reassessment: report called to TYRA Quiroz. vc1 Vital Signs: 03/26 23:21 BP 181 / 107; Pulse 97; Resp 30; Pulse Ox 94% on R/A; vc1 23:29 Temp 97.7; Weight 74.84 kg; Height 5 ft. 5 in. (165.10 cm); vc1 03/27 00:00 BP 152 / 80; Pulse 84; Resp 23; Pulse Ox 100% ; vc1 01:00 BP 145 / 85; Pulse 97; Resp 17; Pulse Ox 97% on 3 lpm NC; vc1 01:53 BP 156 / 80; Pulse 93; Resp 19; Pulse Ox 97% on 2 lpm NC; vc1 03/26 23:29 Body Mass Index 27.46 (74.84 kg, 165.10 cm) vc1 ED Course: 03/26 23:04 Patient arrived in ED. ag3 23:11 Magdi Pires MD is Attending Physician. trinity 23:21 Trixie Alvarez RN is Primary Nurse. vc1 23:23 Triage completed. vc1 23:26 Inserted saline lock: 18 gauge in left antecubital area, using aseptic technique. Blood ds4 collected. 23:27 Arm band placed on right wrist. vc1 23:28 Patient has correct armband on for positive identification. Client placed on continuous vc1 cardiac and pulse oximetry monitoring. NIBP monitoring applied. 23:37 XRAY Chest (1 view) In Process Unspecified. EDMS 03/27 00:02 Saman Rod MD is Hospitalizing Provider. [facility] 00:15 Oxygen administration via nasal cannula \\T\\ 2L/min. vc1 02:03 No provider procedures requiring assistance completed. Patient admitted, IV remains in vc1 place. Administered Medications: 03/26 23:21 Drug: AtroVENT (ipratropium) Aerosol 0.5 mg Route: Inhalation; vc1 23:21 Drug: SOLU-Medrol (methylPrednisoLONE) 125 mg Route: IVP; Site: left antecubital; vc1 03/27 01:51 Follow up: Response: No adverse reaction; Marked relief of symptoms vc1 03/26 23:21 Drug: Albuterol 7.5 mg Route: Inhalation; vc1 03/27 00:13 Drug: Rocephin (cefTRIAXone) 1 grams Route: IV; Rate: per protocol; Site: left vc1 antecubital; 01:51 Follow up: Response: No adverse reaction; IV Intake: 250ml vc1 01:51 Follow up: Response: No adverse reaction vc1 02:04 Follow up: Response: No adverse reaction; IV Status: Completed infusion; IV Intake: [id number] 00:13 Drug: Zithromax (azithromycin) 500 mg Route: PO; vc1 01:51 Follow up: Response: No adverse reaction vc1 00:14 Drug: NS 0.9% 1000 ml Route: IV; Rate: 125 ml/hr; Site: left antecubital; vc1 02:00 Follow up: IV Status: Infusion continued upon admission vc1 00:14 Drug: NS 0.9% 250 ml Route: IV; Rate: bolus; Site: left antecubital; vc1 01:51 Follow up: IV Intake: 250ml vc1 01:52 Follow up: Response: No adverse reaction; IV Status: Completed infusion; IV Intake: vc1 250ml Medication: 02:03 VIS not applicable for this client. vc1 Intake: 01:51 IV: 250ml; Total: 250ml. vc1 01:51 IV: 250ml; Total: 500ml. vc1 01:52 IV: 250ml; Total: 750ml. vc1 02:04 IV: 10ml; Total: 760ml. vc1 Outcome: 00:03 Decision to Hospitalize by Provider. [facility] 02:03 Condition: improved vc1 02:03 Instructed on the need for admit. 02:28 Admitted to Med/surg accompanied by tech, via wheelchair, room 224, with chart, Report vc1 called to TYRA Quiroz 02:28 Patient left the ED. vc1 Signatures: Dispatcher [employer] EDMagdi Smith MD MD cha Swanson, Donovan ds4 Tanya Swanson ag3 Trixie Alvarez, RN RN vc1
--- NOTE | 2022-03-27 00:46 | P.HP ---
Certification for Inpatient Patient admitted to: Observation With expected LOS: <2 Midnights Patient will require the following post-hospital care: None Practitioner: I am a practitioner with admitting privileges, knowledge of patient current condition, hospital course, and medical plan of care. Services: Services provided to patient in accordance with Admission requirements found in Title 42 Section 412.3 of the Code of Federal Regulations Patient History Date of Service: 03/27/22 Reason for admission: Asthma Exacerbation History of Present Illness: Patient is an 86 y/o male, [place] speaking, who presented to the ED with his son with complaints of SHOB x 2-3 days. Son reports it got much worse today despite using his inhaler and has also developed a cough. He denies any recent illness or new triggers. He was initially saturating 94% on RA with RR of 30. CXR showed mild diffuse pulmonary interstitial thickening. Labs WNL. He was given breathing treatment, solumedrol, antibiotics, and supplemental oxygen with improvement in symptoms. Upon my assessment, patient has increased work of breathing and audible wheezes. ED provider wishes to admit patient for observation. Allergies No Known Allergies Allergy (Verified 03/01/20 23:59) Home Medications: Amox/Clavulanate [Augmentin 500-125 mg Tab] 500 mg PO BID #10 tab 03/04/20 traMADol HCL [Ultram*] 50 mg PO BID PRN #10 tab 03/04/20 - Past Medical/Surgical History Diabetic: No Past Medical History: Patient denies medical history -: Asthma -: Appendectomy Psychosocial/ Personal History: Patient lives at home alone. He has a son. - Family History Brother -: Heart disease, Hypertension, Diabetes - Social History Smoking Status: Former smoker Alcohol use: Yes CD- Drugs: No Caffeine use: Yes Place of Residence: Home Review of Systems Respiratory: Cough, Shortness of Breath, Wheezing Physical Examination - Physical Exam General: Alert, In no apparent distress HEENT: Atraumatic, PERRLA, EOMI, Sclerae nonicteric Neck: Supple, 2+ carotid pulse no bruit, No LAD, Without JVD or thyroid abnormality Respiratory: Expiratory wheezes, Other (tachypnea) Cardiovascular: Regular rate/rhythm, Normal S1 S2 Gastrointestinal: Normal bowel sounds, No tenderness Musculoskeletal: No tenderness Integumentary: No rashes Neurological: Normal speech, Normal strength at 5/5 x4 extr, Normal tone, Normal affect - Studies Laboratory Data (last 24 hrs) 03/26/22 23:28: PT 11.5, INR 1.04 03/26/22 23:28: WBC 7.4, Hgb 13.3 L, Hct 41.0, Plt Count 199 03/26/22 23:28: Sodium 139, Potassium 4.0, BUN 15, Creatinine 0.94, Glucose 134 H, Magnesium 2.1, Total Bilirubin 0.3, AST 18, ALT 19, Alkaline Phosphatase 116 Assessment and Plan - Problems (Diagnosis) (1) Asthma with acute exacerbation Current Visit: Yes Status: Acute Qualifiers: Asthma severity: unspecified severity Asthma persistence: unspecified Qualified Code(s): J45.901 - Unspecified asthma with (acute) exacerbation (2) Hypertension Current Visit: Yes Status: Acute Qualifiers: Hypertension type: unspecified Qualified Code(s): I10 - Essential (primary) hypertension - Plan -Scheduled nebs and IV solumedrol -Supplemental O2. Wean as appropriate (does not require home O2) -Pulmonology consulted -Incentive spirometry -No leukocytosis. Will hold off on antibiotics. Received rocephin and azithromycin in ED. -Hypertensive in ED. Denies history of hypertension. Hydralazine PRN. -Lovenox for VTE ppx -Full code Discharge Plan: Home Plan to discharge in: 24 Hours - Advance Directives Does patient have a Living Will: No Does patient have a Durable POA for Healthcare: No - Code Status/Comfort Care Code Status Assessed: Yes (Full) Critical Care: No Time Spent Managing Pts Care (In Minutes): 50
[2022-03-27] MEDS ORDERED: HYDRALAZINE HCL 20 MG/ML VIAL IV PRN (02:20)
[2022-03-27] MEDS ORDERED: ONDANSETRON 4 MG/2 ML VIAL IV PRN (02:20)
[2022-03-27] MEDS ORDERED: ACETAMINOPHEN 500 MG TAB PO PRN (02:20)
[2022-03-27 03:02] VITALS: BMI 27.8
[2022-03-27] MEDS: METHYLPREDNISOLONE 125 MG INJ IV SCH ×3 (03:07→17:36)
[2022-03-27] MEDS: ALBUTEROL 2.5 MG/3 ML NEB SOL NEB SCH ×5 (03:20→20:15)
[2022-03-27] MEDS: IPRATROPIUM BROM 0.5MG/2.5ML NEB SCH ×5 (03:20→20:15)
[2022-03-27] MEDS ORDERED: PNEUMOCOCCAL VACCINE 0.5 ML IMVAC ONE (08:00)
--- NOTE | 2022-03-27 09:08 | P.CNS ---
Date of Consult: 03/27/22 Reason for Consult: asthma exacerbation Chief Complaint: Asthma Exacerbation History of Present Illness: Patient is 86 years of age Lebanese-speaking only son present at the bedside he has a history of asthma is not on any treatment gets his medications from [place] does not have a primary care doctor has been admitted with worsening dyspnea over the past 2 to 3 days with a cough is improving vital signs are all stable Allergies No Known Allergies Allergy (Verified 03/27/22 02:44) Home Medications: Bresaltec 2 puff IH PRN PRN 03/27/22 - Past Medical/Surgical History Diabetic: No -: Asthma -: Appendectomy Psychosocial/ Personal History: Patient lives at home alone. He has a son. - Family History Brother Medical History: Heart disease, Hypertension, Diabetes - Social History Alcohol use: No CD- Drugs: No Caffeine use: Yes Place of Residence: Home Review of Systems is unable to be obtained Physical Examination Temp Pulse Resp BP Pulse Ox 97.3 F 108 H 14 154/81 H 95 03/27/22 08:00 03/27/22 08:00 03/27/22 08:00 03/27/22 08:00 03/27/22 08:00 General: Alert, Oriented x3 Respiratory: Clear to auscultation bilaterally Cardiovascular: No edema, Regular rate/rhythm, Normal S1 S2 Gastrointestinal: Normal bowel sounds, Soft and benign Laboratory Data (last 24 hrs) 03/26/22 23:28: PT 11.5, INR 1.04 03/26/22 23:28: WBC 7.4, Hgb 13.3 L, Hct 41.0, Plt Count 199 03/26/22 23:28: Sodium 139, Potassium 4.0, BUN 15, Creatinine 0.94, Glucose 134 H, Magnesium 2.1, Total Bilirubin 0.3, AST 18, ALT 19, Alkaline Phosphatase 116 - Problems (1) Asthma with acute exacerbation Current Visit: Yes Status: Acute Plan: Patient is 86 years of age admitted with worsening dyspnea and cough presumed asthma exacerbation he is improving does not smoke labs vital signs all satisfactory blood pressure is mildly elevated chest x-ray shows some interstitial changes check room air pulse ox plan for discharge on low-dose prednisone 10 mg twice a day for 2 weeks can also go home with Francisco from the hospital follow-up with me in 2 weeks Qualifiers: Asthma severity: unspecified severity Asthma persistence: unspecified Qualified Code(s): J45.901 - Unspecified asthma with (acute) exacerbation
[2022-03-27] MEDS: ENOXAPARIN 40 MG/0.4 ML SQ SCH (09:31)
[2022-03-27] MEDS: DULERA 200/5 (MOMETASONE/FORMOTEROL) INHALER IH SCH ×2 (10:47→20:46)
--- NOTE | 2022-03-27 12:16 | RAD REPORT ---
EXAM DESCRIPTION: RAD - Chest Single View - 03/26/2022 11:35 pm CLINICAL HISTORY: Cough. COMPARISON: None. TECHNIQUE: Single view AP chest radiograph(s). FINDINGS: Mild diffuse pulmonary interstitial thickening. No focal infiltrate identified. No pleural effusion. No pneumothorax. Nonenlarged cardiomediastinal silhouette. No significant osseous abnormal ity. IMPRESSION: Mild diffuse pulmonary interstitial thickening. No focal infiltrate identified. Electronically signed by: Elly Rubalcava MD 03/27/2022 12:13 AM CDT Due to temporary technical issues with the PACS/Fluency reporting system, reports are being signed by the in house radiologist without review as a courtesy to ensure prompt reporting. The interpreting r adiologist is fully responsible for the content of the report.
[2022-03-28] MEDS: METHYLPREDNISOLONE 125 MG INJ IV SCH ×3 (00:02→12:02)
--- NOTE | 2022-03-28 00:55 | P.PN ---
Subjective Date of Service: 03/27/22 Subjective: No new changes, No C/O voiced, Improving Review of Systems 10-point ROS is otherwise unremarkable Physical Examination - Vital Signs Temperature: 97.6 F Blood Pressure: 127/67 Pulse: 99 Respirations: 14 Pulse Ox (%): 94 - Physical Exam General: Alert, In no apparent distress HEENT: Atraumatic, PERRLA, EOMI Neck: Supple, JVD not distended Respiratory: Clear to auscultation bilaterally, Normal air movement Cardiovascular: Regular rate/rhythm, Normal S1 S2 Gastrointestinal: Normal bowel sounds, No tenderness Musculoskeletal: No tenderness Integumentary: No rashes Neurological: Normal speech, Normal tone, Normal affect Lymphatics: No axilla or inguinal lymphadenopathy - Studies Medications List Reviewed: Yes Assessment & Plan - Problems (Diagnosis) (1) Asthma with acute exacerbation Current Visit: Yes Status: Acute Qualifiers: Asthma severity: unspecified severity Asthma persistence: unspecified Qualified Code(s): J45.901 - Unspecified asthma with (acute) exacerbation (2) Hypertension Current Visit: Yes Status: Acute Qualifiers: Hypertension type: unspecified Qualified Code(s): I10 - Essential (primary) hypertension (3) History of COPD Current Visit: No Status: Acute - Advance Directives Does patient have a Living Will: No Does patient have a Durable POA for Healthcare: No
[2022-03-28] MEDS: ALBUTEROL 2.5 MG/3 ML NEB SOL NEB SCH ×3 (01:10→13:51)
[2022-03-28] MEDS: IPRATROPIUM BROM 0.5MG/2.5ML NEB SCH ×3 (01:10→13:51)
--- NOTE | 2022-03-28 08:56 | EKG ---
Test Date: 2022-03-26 Test Time: 23:53:00 [employer] Department: [facility] MEASUREMENT RESULTS: Intervals: Rate: 95 AL: 152 QRSD: 84 QT: 348 QTc: 437 [place]: P: 74 AL: 152 QRS: 65 T: 81 INTERPRETIVE STATEMENTS: Sinus rhythm with marked sinus arrhythmia with occasional premature ventricular complexes Otherwise normal ECG Compared to ECG 03/21/2020 17:02:14 Ventricular premature complex(es) now present Electronically Signed On 03-28-22 08:55:11 CDT by Joe Gallagher
[2022-03-28] MEDS ORDERED: AZITHROMYCIN IV 500 MG in NA CHLORIDE 0.9% 250 ML IVPB SCH (09:00)
[2022-03-28] MEDS: ENOXAPARIN 40 MG/0.4 ML SQ SCH (09:02)
[2022-03-28] MEDS: DULERA 200/5 (MOMETASONE/FORMOTEROL) INHALER IH SCH (09:02)
[2022-03-28 14:12] VITALS: O2SAT 93
[2022-03-28 14:21] VITALS: BP 125/71; TEMP 98.1
== END 2022-03-28 15:24 | disposition home or self-care (01) | DRG 203 ==
LOC: ER 23:03 → ERHOLD 03-27 00:42 → 2ND 03-27 02:03 → OBSVTOIN 03-27 17:51
PROVIDERS: ADMIT Hospitalist; ATTEND Hospitalist
DX: J45.901 Unspecified asthma with (acute) exacerbation (principal); I10 Essential (primary) hypertension; Z20.822 Contact with and (suspected) exposure to COVID-19; Z87.891 Personal history of nicotine dependence; Z82.49 Family history of ischemic heart disease and other diseases of the circulatory system; Z83.3 Family history of diabetes mellitus
CPT/HCPCS: 36415; 71045; 80048; 80076; 83735; 83880; 84484; 85025; 85610; 87040; 87205; 93005; 94010; 94640; 94760; 94762; 96365; 96375; 99285; G0378; J0360; J0456; J1650; J2930; J3535; J7030; J7050; U0003